=== PATIENT | female | born 1970 | race Caucasian/White ===

== ENCOUNTER 2019-10-18 07:50 | Outpatient (REF) | payer OTHER, SELFPAY ==
[2019-10-18 08:36] LABS: Basophils # 0.1 10^3/uL (0.0-0.1); Basophils % 1.1 %; Eosinophils # 0.2 10^3/uL (0.0-0.8); Eosinophils % 1.9 %; Hematocrit 42.4 % (37.0-47.0); Hemoglobin 13.7 g/dL (11.5-15.3); Lymphocytes # 2.4 10^3/uL (0.8-4.8); Lymphocytes % 24.8 %; Mean Corpuscular HGB Conc 32.3 g/dL (30.0-36.0); Mean Corpuscular Hemoglobin 28.5 pg (28.0-34.0); Mean Corpuscular Volume 88.1 fL (81-99); Mean Platelet Volume 10.2 fL (7.4-10.4); Monocytes # 0.7 10^3/uL (0.2-0.9); Neutrophils # 6.4 10^3/uL (1.8-7.7); Neutrophils % 64.9 %; Nucleated Red Blood Cells % 0 %; Platelet Count 357 10^3/cmm (130-400); Red Blood Count 4.81 10^6/uL (4.1-5.3); Red Cell Distribution Width 12.4 % (12.1-15.1); White Blood Count 9.9 10^3/uL (4.0-10.0)
[2019-10-18 13:37] LABS: Alanine Aminotransferase 65 U/L (0-33); Alkaline Phosphatase 69 IU/L (35-105); Anion Gap 19.5 (5-19); Aspartate Amino Transferase 31 U/L (0-32); Blood Urea Nitrogen 14 mg/dL (6-20); Calcium 9.6 mg/dL (8.5-10.5); Carbon Dioxide 23 mmol/L (22-29); Chloride 99 mmol/L (98-107); Chol HDL Ratio 2.82 mg/dL (0.0-4.40); Cholesterol 223 mg/dL (0-200); Globulin 3.3 g/dL (1.3-4.6); Glomerular Filtration Rate 67.1 mL/min (90-130); Glucose 75 mg/dL (65-115); HDL Cholesterol 79 mg/dL (60-100); LDL Cholesterol Calculated 116 mg/dL (50-129); LDL HDL Ratio 1.47 RATIO (0.00-3.22); Potassium 3.5 mmol/L (3.5-5.1); Sodium 138 mmol/L (136-145); Thyroid Stimulating Hormone 3.92 uIU/mL (0.27-4.20); Total Bilirubin 0.2 mg/dL (0.15-1.2); Total Protein 7.3 g/dL (6.6-8.7); Triglycerides 139 mg/dL (0-150)
[2019-10-18 23:23] LABS: 25 Hydroxy Vitamin D 22 ng/mL (30-100)
[2019-10-19 02:40] LABS: Estmated Average Glucose 123; Hemoglobin A1C 5.9 % (4.0-6.0)
== END 2019-10-18 07:51 | disposition home or self-care (01) ==
LOC: LAB 07:50
PROVIDERS: Family Provider Family Medicine; PCP Family Medicine; Visit Provider Dermatology
DX: Z01.89 Encounter for other specified special examinations (principal)
CPT/HCPCS: 80053; 80061; 82306; 83036; 84443; 85025

== ENCOUNTER 2020-12-08 08:03 | Outpatient (CLI) | payer OTHER, SELFPAY ==
--- NOTE | 2020-12-08 08:29 | MM_ITS ---
WS: [id number] BILATERAL DIGITAL SCREENING MAMMOGRAPHY WITH CAD CLINICAL INFORMATION: SCREENING HISTORY: Screening mammogram. No current complaints. COMPARISON: TECHNIQUE: Bilateral CC and MLO views. FINDINGS: Bilateral breast implants appear intact. Scattered fibroglandular densities bilaterally. No suspicious focal mass, asymmetry, calcifications, or architectural distortion. No evidence of malignancy. MM/[place] [id number] IMPRESSION: BI-RADS: 2-Benign FOLLOW UP: 1 Year Follow-up Recommend return to annual screening mammography.
== END 2020-12-08 08:04 | disposition home or self-care (01) ==
LOC: RADSHAW 08:08
PROVIDERS: PCP Family Medicine; Visit Provider Family Medicine
DX: Z12.31 Encounter for screening mammogram for malignant neoplasm of breast (principal)
CPT/HCPCS: 77067

== ENCOUNTER → 2022-03-07 09:00 | Outpatient (BNVA) | payer OTHER, SELFPAY | PROVIDERS: PCP Family Medicine; Visit Provider Clinical Nurse Specialist Adult Health | DX: J06.9 Acute upper respiratory infection, unspecified (principal) | CPT/HCPCS: 87635; 87801; 87880 ==

== ENCOUNTER 2024-11-03 10:59 | Emergency (ER) | payer OTHER, SELFPAY ==
[2024-11-03] VITALS (14 sets, daily range): BP systolic 129–150; BP diastolic 80–111; PULSE 64–86; RESP 13–21; TEMP 36.9; O2SAT 94–100
--- NOTE | 2024-11-03 11:07 | ECG_ITS ---
[employer] Test Date: 2024-11-03 Pat Name: Alejandrina Harrison Department: Room: Gender: Female Assessor: : 1970 Requested By: Abby Bledsoe Order Number: [id number] Tatiana MD: PATRICK BOURGEOIS Measurements Intervals [place] Rate: 84 P: 12 IN: 162 QRS: -16 QRSD: 102 T: 28 QT: 410 QTc: 487 Interpretive Statements SINUS RHYTHM MINIMAL VOLTAGE CRITERIA FOR LVH, CONSIDER NORMAL VARIANT [MEETS CRITERIA IN ONE OF: R(aVL), S(V1), R(V5), R(V5/V6)+S(V1)] POSSIBLE ANTERIOR MYOCARDIAL INFARCTION , OF INDETERMINATE AGE [30 ms Q WAVE IN V3/V4, OR R < 0.2 mV IN V4] INTERPRETATION BASED ON A DEFAULT AGE OF 40 YEARS Compared to ECG 03/18/2015 19:22:45 Myocardial infarct finding now present Electronically Signed On 11-05-2024 23:38:27 CUSTOMER EXPERIENCE INTERN by PATRICK BOURGEOIS [id number]
--- NOTE | 2024-11-03 11:18 | XRR_ITS ---
PROCEDURE INFORMATION: Exam: XR Chest Exam date and time: 11/03/2024 11:54 AM Age: 54 years old Clinical indication: Chest pressure; Prior surgery; Surgery date: 6+ months; Surgery type: Breast augmentation; Epigastric/chest pain TECHNIQUE: Imaging protocol: Radiologic exam of the chest. Views: 1 view. COMPARISON: CT angio chest w abd pel w con 11/03/2024 11:39 AM FINDINGS: Lungs: Unremarkable. No consolidation. Pleural spaces: Unremarkable. No pleural effusion. No pneumothorax. Heart/Mediastinum: Unremarkable. No cardiomegaly. Bones/joints: Unremarkable. Soft tissues: Left axillary clips. XR/XR chest 1V portable [id number] IMPRESSION: No acute cardiopulmonary disease.
--- NOTE | 2024-11-03 11:18 | CTR_ITS ---
PROCEDURE INFORMATION: Exam: CTA Chest With Contrast Exam date and time: 11/03/2024 11:39 AM Age: 54 years old Clinical indication: Abdominal pain; Epigastric; Chest pressure; Iv came apart so had to start over; Additional info: Epigastric pain TECHNIQUE: Imaging protocol: Computed tomographic angiography of the chest with contrast. Exam focused on the arteries. 3D rendering (Not supervised by radiologist): MIP and/or 3D reconstructed images were created by the technologist. Radiation optimization: All CT scans at this facility use at least one of these dose optimization techniques: automated exposure control; mA and/or kV adjustment per patient size (includes targeted exams where dose is matched to clinical indication); or iterative reconstruction. Contrast material: OMNI 350; Contrast volume: 100 ml; Contrast route: INTRAVENOUS (IV); COMPARISON: CR XR chest 2V* [id number] 07/08/2019 11:38 AM RADIATION DOSE METRICS: Total DLP (mGy-cm): 1435.84 FINDINGS: Pulmonary arteries: No acute central or lobar pulmonary embolism. The main pulmonary artery is normal in caliber. Aorta: The ascending thoracic aorta is normal in caliber. Thyroid: The thyroid is unremarkable. Lungs: No focal consolidation. Mild dependent atelectasis bilaterally. Pleural spaces: Unremarkable. No pneumothorax. No pleural effusion. Heart: Unremarkable. No cardiomegaly. No pericardial effusion. Lymph nodes: Unremarkable. No enlarged lymph nodes. Bones/joints: Unremarkable. No acute fracture. Soft tissues: Bilateral breast implants are visualized. PROCEDURE INFORMATION: Exam: CT Abdomen And Pelvis With Contrast Exam date and time: 11/03/2024 11:39 AM Age: 54 years old Clinical indication: Abdominal pain; Epigastric; Chest pressure; Iv came apart so had to start over; Additional info: Epigastric pain TECHNIQUE: Imaging protocol: Computed tomography of the abdomen and pelvis with contrast. Radiation optimization: All CT scans at this facility use at least one of these dose optimization techniques: automated exposure control; mA and/or kV adjustment per patient size (includes targeted exams where dose is matched to clinical indication); or iterative reconstruction. Contrast material: OMNI 350; Contrast volume: 100 ml; Contrast route: INTRAVENOUS (IV); COMPARISON: CR XR chest 2V* [id number] 07/08/2019 11:38 AM RADIATION DOSE METRICS: Total DLP (mGy-cm): 1435.84 FINDINGS: Liver: Multiple scattered hypodensities in the liver likely representing small simple hepatic cysts. The liver is normal in size. Mild intrahepatic biliary ductal prominence. Gallbladder and biliary ducts: Status post cholecystectomy with normal post cholecystectomy prominence of the common bile duct as well as prominence of the intrahepatic biliary ducts. Pancreas: Normal. No ductal dilation. Spleen: Multiple scattered hypodensities in the spleen too small to further characterize likely representing small cysts or hemangiomas. Adrenal glands: Normal. No mass. Kidneys and ureters: Normal. No hydronephrosis. Stomach and bowel: Increased colonic stool burden suggesting constipation. Mild gastric wall thickening accentuated by underdistention. Scattered fluid-filled non pathologically dilated loops of small bowel. Appendix: No evidence of acute appendicitis. Intraperitoneal space: No intraperitoneal free air or fluid. Vasculature: Mild narrowing at the origin of the celiac artery with poststenotic dilatation (28/30) and (20/481). The superior mesenteric artery is widely patent. The inferior mesenteric artery is widely patent. No aneurysmal dilatation of the abdominal aorta. The iliac arteries are normal in caliber. The bilateral renal arteries are widely patent. Lymph nodes: Unremarkable. No enlarged lymph nodes. Urinary bladder: Unremarkable as visualized. Reproductive: Unremarkable as visualized. Bones/joints: Mild multilevel degenerative disease of the thoracolumbar spine. Endplate sclerosis, degenerative disc disease and associated vacuum phenomenon at L5-S1. No acute fracture. Soft tissues: Tiny fat containing umbilical hernia. CT/CT angio chest w abd pel w con IMPRESSION: No acute pathology in the chest. No acute aortic dissection. No central pulmonary embolism. IMPRESSION: 1. Mild wall thickening of the stomach with scattered fluid-filled loops of small bowel throughout the abdomen and pelvis likely accentuated by underdistention however may represent mild gastroenteritis. Otherwise no acute pathology in the abdomen and pelvis. 2. No evidence of acute aortic dissection. 3. Stable findings status post cholecystectomy with mild intra and extrahepatic biliary prominence likely normal postsurgical appearance. 4. There is minimal narrowing at the proximal celiac artery with mild poststenotic dilatation which may be secondary to median arcuate ligament compression. Recommend clinical correlation for median arcuate ligament syndrome.
[2024-11-03 11:25] LABS: Basophils # 0.1 10^3/uL (0.0-0.1); Eosinophils # 0.2 10^3/uL (0.0-0.8); Eosinophils % 2.3 %; Hematocrit 38.4 % (36-47); Lymphocytes # 3.4 10^3/uL (0.8-4.8); Lymphocytes % 31.7 %; Mean Corpuscular HGB Conc 34.4 g/dL (30-55); Mean Corpuscular Hemoglobin 28.8 pg (27-33); Mean Corpuscular Volume 83.8 fl (85-98); Mean Platelet Volume 9.6 fL (7.4-10.4); Monocytes # 0.6 10^3/uL (0.2-0.9); Monocytes % 5.6 %; Neutrophils # 6.28 10^3/uL (1.8-7.7); Neutrophils % 59.2 %; Nucleated Red Blood Cells % 0 %; Platelet Count 344 10^3/cmm (157-399); Red Blood Count 4.58 10^6/uL (3.85-5.65); Red Cell Distribution Width 12.4 % (12.1-15.1); White Blood Count 10.62 10^3/uL (3.29-11.43)
[2024-11-03] MEDS: morphine 4 mg/mL SDV 1 mL IVP ×2 (11:33→14:38)
[2024-11-03] MEDS: ondansetron 2 mg/ML SDV 2 mL 4 MG IVP (11:33)
[2024-11-03] MEDS: famotidine 20 mg/2 mL INJ 40 MG IVP (11:33)
[2024-11-03 11:41] LABS: Troponin(5th) Baseline < 6 ng/L (0-10)
[2024-11-03 11:44] LABS: Alanine Aminotransferase 12 U/L (0-33); Albumin Level 3.9 g/dL (3.5-5.2); Alkaline Phosphatase 59 U/L (35-105); Anion Gap 16.2 (5-19); Aspartate Amino Transferase 13 U/L (0-32); Blood Urea Nitrogen 12 mg/dL (6-20); Calcium 9.1 mg/dL (8.5-10.5); Carbon Dioxide 21 mmol/L (22-29); Chloride 102 mmol/L (98-107); Globulin 2.7 g/dL (1.3-4.6); Glomerular Filtration Rate 65.8 mL/min (90-130); Glucose 123 mg/dL (65-115); Lipase 40 U/L (13-60); Osmolality Calculated 283 mOsm/kg (285-295); Potassium 3.2 mmol/L (3.5-5.1); Sodium 136 mmol/L (136-145); Total Bilirubin 0.4 mg/dL (0.15-1.2); Total Protein 6.6 g/dL (6.6-8.7)
[2024-11-03] MEDS: iohexol 350 mg/mL 500 mL Btl (per mL) IV (11:45)
--- NOTE | 2024-11-03 11:55 | ED_ITS ---
HPI - Abdominal Pain 2 General: Chief Complaint: Abdominal Pain Stated Complaint: severe abd pain Time Seen by Provider: 11/03/24 11:09 History of Present Illness: This patient is a 54 year old presenting with epigastric pain that radiates up into her chest and into her back between her shoulder blades. She says that it started this morning while she was still in bed - around 6 or 6:30. It has continually gotten worse as the day progressed. She has had nausea, shortness of breath, and feels like she might feel like she could pass out. She denies history of cardiac disease. She has had her gallbladder out in the past. She has had a stress test but it was many years ago. She has not had recent illness. Her daughter notes that her diastolic blood pressure has been running high for a few weeks. The patient denies being on the norgestrimate-estradiol that is on her medication list. She reports methylphenidate, metoprolol, fluoxetine only. Upon further questioning - the patient is using semaglutide for weight loss and has lost about 40 pounds over the past few months. She also has a history of malignant melanoma on her left shoulder. She had surgery to remove it and did not require chemotherapy or radiation. She follows up with oncology annually has had not had any problems. Related Data Home Medications ?Medication ?Instructions ?Recorded ?Confirmed fluoxetine 20 mg tablet 20 mg PO DAILY 11/03/2410/13 semaglutide (weight loss) 1 mg/0.5 1 mg SUBCUT Q7D 11/03/24 mL subcutaneous pen injector Previous Rx's ?Medication ?Instructions ?Recorded metoprolol tartrate 25 mg tablet 25 mg PO BID #180 tab s 06/20/24 norgestimate-ethinyl estradiol 1 tab PO DAILY #84 tabs 07/29/24 0.18 mg/0.215mg/0.25mg-35 mcg(28)tablet (Tri-Linyah) methylphenidate HCl 20 mg 20 mg PO DAILY 30 days #30 t abs 11/11/24 tablet,extended release Allergies Allergy/AdvReac Type Severity Reaction Status Date / Time buspirone (From BuSpar) Allergy Unknown Unknown Verified 11/03/24 11:18 penicillin V Allergy Unknown Unknown Verified 11/03/24 11:18 Sulfa (Sulfonamide Allergy Unknown Unknown Verified 11/03/24 11:18 Antibiotics) PFSH ED 2 PFSH: Medical History (Updated 11/11/24 @ 00:00 by SHOAIB Weller) History of alcohol abuse Depression Vitamin D deficiency Generalized anxiety disorder Seasonal allergies Essential hypertension ADD (attention deficit disorder) has been taking methylphenidate since 2016 Malignant melanoma EILEEN (obstructive sleep apnea) Surgical History (Updated 04/19/24 @ 09:42 by Néstor Coleman NP) Hx of wisdom tooth extraction Hx of abdominal surgery tummy tuck Hx of breast augmentation Hx of cholecystectomy Physical Exam 2 Const: COMMON NORMALS: patient oriented x3 and alert GENERAL APPEARANCE: c ooperative and in distress HENMT: HEAD & SCALP: normal to inspection FACE & SINUS: normal facial exam Eye: GENERAL EYE: appearance normal, both eyes and all related structures Neck/C-Spine: COMMON NORMALS: supple, no meningeal signs and no JVD Chest: COMMONS NORMALS: normal inspection of the chest Resp: COMMON NORMALS: normal respiratory effort, No use of accessory muscles and clear to auscultation bilaterally AUSCULTATION: clear to auscultation bilaterally Cardio: COMMON NORMALS: no JVD, regular rate, regular rhythm and No murmurs present (Cardio) RATE: regular rate RHYTHM: regular rhythm GI: COMMON NORMALS: Normal to inspection, nondistended, normoactive bowel sounds present and Soft to palpation INSPECTION: Yes normal to inspection AUSCULTATION: Yes normoactive bowel sounds PALPATION: Yes Soft to palpation and Yes Tenderness to palpation present (GI) (mild) Details: LUQ and RUQ Back/Pelvis: COMMON NORMALS: thoracic and lumbar spine normal to inspection Extremity: COMMON NORMALS: normal to inspection Neuro: COMMON NORMALS: patient oriented x3, moves all extremities, no focal motor deficits and no sensory deficits noted SENSORIUM/ORIENTATION: Yes alert MENINGEAL SIGNS: Yes no meningeal signs Psych: COMMON NORMALS: mental status grossly normal, cooperative and normal affect Skin: COMMON NORMALS: no rashes or lesions noted and turgor normal GENERAL SKIN EXAM: no rashes or lesions noted and turgor normal Course 2 Vital Signs: Vital signs: Vital Signs Temperature 98.5 F 11/03/24 11:18 Pulse Rate 64 11/03/24 16:17 Respiratory Rate 21 H 11/03/24 16:00 Blood Pressure 144/84 11/03/24 16:17 Pulse Oximetry 97 11/03/24 16:17 Oxygen Delivery Me thod Room Air 11/03/24 11:15 MDM - Abdominal Pain Medical Decision Making Patient with significant pain on my evaluation - vomiting post abdominal exam. Her abdominal tenderness was less than anticipated based on her apparent degree of discomfort. Her symptoms are concerning for biliary colic - but she has no gallbladder. She did not have a Hill sign on exam although she was tender in the right upper quadrant. Her LFTs were normal. Her white count was normal. She was noted to have some mild intra and extrahepatic biliary dilatation on her CT scan which was felt to be within normal limits for postcholecystectomy. She had some scattered hypoattenuating lesions in the liver and spleen which were felt to be cysts. There was mention of some thickening of the gastric wall which could have been due to underdistention or a gastroenteritis. There is also some mention of a mild stenosis at the proximal celiac artery consistent with potential for median arcuate ligament syndrome. I added a lactic acid to her labs to see if there was any evidence of ischemia. Clinically am not sure this fits the symptoms. She has had some weight loss recently but is not overly thin. She did have improvement with morphine and Zofran. I also gave her Pepcid. Her pain started to return and she got a second dose of morphine. Her troponin came back normal both at 0 and 2 hours. Lipase was normal. She denies history of ulcers. Cause of her symptoms is unclear at this point. Options for admission vs outpatient follow up were discussed and she prefers to go home at this time. Lab Data 11/03/24 11:18 11/03/24 11:18 Labs/Radiology: Radiology Impressions Chest X-Ray 11/03/24 11:18 IMPRESSION: No acute cardiopulmonary disease. Chest/Abdomen/Pelvis CT 11/03/24 11:18 IMPRESSION: No acute pathology in the chest. No acute aortic dissection. No central pulmonary embolism. IMPRESSION: 1. Mild wall thickening of the stomach with scattered fluid-filled loops of small bowel throughout the abdomen and pelvis likely accentuated by underdistention however may represent mild gastroenteritis. Otherwise no acute pathology in the abdomen and pelvis. 2. No evidence of acute aortic dissection. 3. Stable findings status post cholecystectomy with mild intra and extrahepatic biliary prominence likely normal postsurgical appearance. 4. There is minimal narrowing at the proximal celiac artery with mild poststenotic dilatation which may be secondary to median arcuate ligament compression. Recommend clinical correlation for median arcuate ligament syndrome. Laboratory Results WBC 10.62 10^3/uL (3.29-11.43) 11/03/24 11:18 RBC 4.58 10^6/uL (3.85-5.65) 11/03/24 11:18 Hgb 13.20 g/dL (11.27-16.99) 11/03/24 11:18 Hct 38.4 % (36-47) 11/03/24 11:18 MCV 83.8 fl (85-98) L 11/03/24 11:18 MCH 28.8 pg (27-33) 11/03/24 11:18 MCHC 34.4 g/dL (30-55) 11/03/24 11:18 RDW 12.4 % (12.1-15.1) 11/03/24 11:18 Plt Count 344 10^3/cmm (157-399) 11/03/24 11:18 MPV 9.6 fL (7.4-10.4) 11/03/24 11:18 Neut % (Auto) 59.2 % 11/03/24 11:18 Lymph % (Auto) 31.7 % 11/03/24 11:18 [place] % (Auto) 5.6 % 11/03/24 11:18 Eos % (Auto) 2.3 % 11/03/24 11:18 Baso % (Auto) 1.0 % 11/03/24 11:18 Neut # (Auto) 6.28 10^3/uL (1.8-7.7) 11/03/24 11:18 Lymph # (Auto) 3.4 10^3/uL (0.8-4.8) 11/03/24 11:18 [place] # (Auto) 0.6 10^3/uL (0.2-0.9) 11/03/24 11:18 Eos # (Auto) 0.2 10^3/uL (0.0-0.8) 11/03/24 11:18 Baso # (Auto) 0.1 10^3/uL (0.0-0.1) 11/03/24 11:18 Nucleated RBC % (auto) 0 % 11/03/24 11:18 Nucleated RBCs # 0.0 /100WBC 11/03/24 11:18 Sodium 136 mmol/L (136-145) 11/03/24 11:18 Potassium 3.2 mmol/L (3.5-5.1) L 11/03/24 11:18 Chloride 102 mmol/L (98-107) 11/03/24 11:18 Carbon Dioxide 21 mmol/L (22-29) L 11/03/24 11:18 Anion Gap 16.2 (5-19) 11/03/24 11:18 BUN 12 mg/dL (6-20) 11/03/24 11:18 Creatinine 0.9 mg/dL (0.5-0.9) 11/03/24 11:18 GFR Calculation 65.8 mL/min (90-130) L 11/03/24 11:18 Glucose 123 mg/dL (65-115) H 11/03/24 11:18 Calculated Osmolality 283 mOsm/kg (285-295) L 11/03/24 11:18 Lactic Acid 0.8 mmol/L (0.5-2.2) 11/03/24 13:35 Calcium 9.1 mg/dL (8.5-10.5) 11/03/24 11:18 Total Bilirubin 0.4 mg/dL (0.15-1.2) 11/03/24 11:18 AST 13 U/L (0-32) 11/03/24 11:18 ALT 12 U/L (0-33) 11/03/24 11:18 Alkaline Phosphatase 59 U/L (35-105) 11/03/24 11:18 Troponin T Baseline < 6 ng/L (0-10) 11/03/24 11:18 Troponin T 120 Minute 6.00 ng/L (0-10) 11/03/24 13:35 Delta Troponin T 0.37100 ABS# (0-10) 11/03/24 13:35 Total Protein 6.6 g/dL (6.6-8.7) 11/03/24 11:18 Albumin 3.9 g/dL (3.5-5.2) 11/03/24 11:18 Globulin 2.7 g/dL (1.3-4.6) 11/03/24 11:18 Lipase 40 U/L (13-60) 11/03/24 11:18 All radiology interpretation(s) finalized by discharge Discharge Plan Discharge Patient Disposition: Home Clinical Impression: Abdominal pain, Chest pain, Vomiting Condition: Stable Prescriptions: No Action metoprolol tartrate 25 mg tablet 25 mg PO BID Qty: 180 3RF norgestimate-ethinyl estradiol [Tri-Linyah] 0.18/0.215/0.25 mg-35 mcg (28) tablet 1 tab PO DAILY Qty: 84 3RF methylphenidate HCl 20 mg tablet extended release 20 mg PO DAILY 30 Days Qty: 30 0RF semaglutide (weight loss) 1 mg/0.5 mL Pen Injector 1 mg SUBCUT Q7D fluoxetine 20 mg tablet 20 mg PO DAILY Rx Instructions: TAKE ONE TABLET BY MOUTH DAILY Discharge Orders: Discharge ED (Routine); Ordered 11/03/24 Ordered By: Abby Bledsoe Referrals: Robert Reno DO [Primary Care Provider] - Discharge Diet: Advance as tolerated Discharge Activity: Resume usual activity Patient Instructions: Abdominal Pain (ED), Opioid Safety, Pain Management Activity Restrictions/Additional Instructions: Take an [id number] medicine for heartburn such as Prevacid or Prilosec for the next few weeks. Return to the ER if worsening pain or fever. Follow-up with your primary care doctor if not improving. Print Language: Welsh Coding Level of Care Code ED Grain Thresher for Kristina Machado
[2024-11-03] MEDS: aspirin 325 mg Tablet PO (12:12)
--- NOTE | 2024-11-03 13:35 | ECG_ITS ---
[facility] Test Date: 2024-11-03 Pat Name: Alejandrina Harrison Department: Room: Gender: Female Registered Nurse Teacher: : 1970 Requested By: Abby Bledsoe Order Number: [id number] Tatiana MD: PATRICK BOURGEOIS Measurements Intervals [place] Rate: 68 P: 10 [place]: 171 QRS: -8 QRSD: 95 T: 4 QT: 422 QTc: 452 Interpretive Statements SINUS RHYTHM Compared to ECG 11/03/2024 11:07:42 Myocardial infarct finding no longer present Electronically Signed On 11-05-2024 23:50:55 CROZE CUTTER by PATRICK BOURGEOIS [id number]
[2024-11-03 14:14] LABS: Troponin 5 2HR Delta 0.00001 ABS# (0-10)
[2024-11-03 14:46] LABS: Lactic Sepsis W/Reflex 0.8 mmol/L (0.5-2.2)
== END 2024-11-03 16:19 | disposition home or self-care (01) ==
PROVIDERS: Emergency Provider Emergency Medicine; PCP Family Medicine
DX: R10.9 Unspecified abdominal pain (principal); R07.9 Chest pain, unspecified; R11.10 Vomiting, unspecified; I10 Essential (primary) hypertension; Z85.820 Personal history of malignant melanoma of skin
CPT/HCPCS: 36415; 71045; 71275; 74177; 80053; 83605; 83690; 84484; 85025; 93005; 96374; 96375; 96376; 99285; J2270; J2405; J3490

== ENCOUNTER 2024-11-28 16:11 | Inpatient (IN) | payer OTHER, SELFPAY ==
[2024-11-28] VITALS (12 sets, daily range): BP systolic 94–126; BP diastolic 63–83; PULSE 73–125; RESP 16–18; TEMP 36.6–36.9; O2SAT 95–99; BMI 27.9
[2024-11-28 16:47] LABS: Basophils # 0.1 10^3/uL (0.0-0.1); Basophils % 0.7 %; Eosinophils # 0.1 10^3/uL (0.0-0.8); Eosinophils % 0.6 %; Hematocrit 45.4 % (36-47); Lymphocytes # 3.2 10^3/uL (0.8-4.8); Lymphocytes % 18.9 %; Mean Corpuscular HGB Conc 33.5 g/dL (30-55); Mean Corpuscular Hemoglobin 28.9 pg (27-33); Mean Corpuscular Volume 86.3 fl (85-98); Mean Platelet Volume 9.8 fL (7.4-10.4); Monocytes # 1.1 10^3/uL (0.2-0.9); Monocytes % 6.3 %; Neutrophils # 12.35 10^3/uL (1.8-7.7); Neutrophils % 73.2 %; Nucleated Red Blood Cells % 0 %; Platelet Count 374 10^3/cmm (157-399); Red Blood Count 5.26 10^6/uL (3.85-5.65); Red Cell Distribution Width 12.5 % (12.1-15.1); White Blood Count 16.86 10^3/uL (3.29-11.43)
--- NOTE | 2024-11-28 16:57 | XRR_ITS ---
PROCEDURE INFORMATION: Exam: XR Abdomen Exam date and time: 11/28/2024 5:10 PM Age: 54 years old Clinical indication: Abdominal pain; Periumbilical; Additional info: Abdominal pain, nausea vomiting TECHNIQUE: Imaging protocol: Radiologic exam of the abdomen. Views: Frontal supine view of the abdomen. 1 View. COMPARISON: CT angio chest w abd pel w con 11/03/2024 11:39 AM FINDINGS: Tubes, catheters and devices: Surgical clips project over right upper quadrant. Gastrointestinal tract: Nonobstructive bowel gas pattern. Intraperitoneal space: No pneumoperitoneum. Bones/joints: No acute osseous abnormality. XR/XR KUB portable [id number] IMPRESSION: Nonobstructive bowel gas pattern.
--- NOTE | 2024-11-28 17:04 | W.ED.ABDPA2 ---
HPI - Abdominal Pain General: Chief Complaint: Abdominal Pain Stated Complaint: Abd pain Time Seen by Provider: 11/28/24 16:38 History of Present Illness: 54-year-old female presents with some epigastric pain that is now more diffuse abdominal pain. Patient was seen here about a week ago with negative CT and labs that showed anything significant. They thought that maybe she had a ulcer or gastritis. That she got temporary little better but then about 3 days ago she started vomiting and now has some diffuse abdominal discomfort. Patient was recently switched from omeprazole to Protonix. Associated Symptoms: Reports nausea and vomiting; Denies chills and fever(s) Related Data Home Medications ?Medication ?Instructions ?Recorded ?Confirmed fluoxetine 20 mg tablet 20 mg PO DAILY 11/03/24 11/03/24 semaglutide (weight loss) 1 mg/0.5 1 mg SUBCUT Q7D 11/03/24 11/03/24 mL subcutaneous pen injector Previous Rx's ?Medication ?Instructions ?Recorded metoprolol tartrate 25 mg tablet 25 mg PO BID #180 tabs 06/20/24 norgestimate-ethinyl estradiol 1 tab PO DAILY #84 tabs 07/29/24 0.18 mg/0.215mg/0.25mg-35 mcg(28)tablet (Tri-Linyah) methylphenidate HCl 20 mg 20 mg PO DAILY 30 days #30 tabs 11/11/24 tablet,extended release Allergies Allergy/AdvReac Type Severity Reaction Status Date / Time buspirone (From BuSpar) Allergy Unknown Unknown Verified 11/28/24 16:21 penicillin V Allergy Unknown Unknown Verified 11/28/24 16:21 Sulfa (Sulfonamide Allergy Unknown Unknown Verified 11/28/24 16:21 Antibiotics) Review of Systems Const: Denies: fever(s) or chills Card: Denies: chest pain or palpitations Resp: Denies: dyspnea, productive cough or non-productive cough GI: Reports: abdominal pain, nausea and vomiting : Denies: flank pain or difficulty voiding Musc: Denies: neck pain or back pain PFSH ED PFSH: Medical History History of alcohol abuse Depression Vitamin D deficiency Generalized anxiety disorder Seasonal allergies Essential hypertension ADD (attention deficit disorder) has been taking methylphenidate since 2016 Malignant melanoma EILEEN (obstructive sleep apnea) Surgical History Hx of wisdom tooth extraction Hx of abdominal surgery tummy tuck Hx of breast augmentation Hx of cholecystectomy Physical Exam Const: COMMON NORMALS: patient oriented x3 and alert GENERAL APPEARANCE: not comfortable Resp: COMMON NORMALS: normal respiratory effort, No use of accessory muscles and clear to auscultation bilaterally AUSCULTATION: clear to auscultation bilaterally Cardio: COMMON NORMALS: regular rhythm RATE: tachycardic RHYTHM: regular rhythm GI: PALPATION: Yes Tenderness to palpation present (GI) Extremity: COMMON NORMALS: normal to inspection and full ROM Neuro: COMMON NORMALS: patient oriented x3, moves all extremities, no focal motor deficits and no sensory deficits noted SENSORIUM/ORIENTATION: Yes alert Course Vital Signs: Vital signs: Vital Signs Temperature 97.9 F 11/28/24 16:14 Pulse Rate 125 H 11/28/24 16:14 Respiratory Rate 16 11/28/24 17:36 Blood Pressure 124/83 11/28/24 18:01 Pulse Oximetry 96 11/28/24 18:01 Oxygen Delivery Me thod Room Air 11/28/24 16:14 MDM - Abdominal Pain Medical Decision Making Patient's labs were ordered reviewed and shows elevated white count that is new from her visit recently. Patient continue to have significant mount of pain diffusely over abdomen so I did obtain a CT abdomen pelvis. CT abdomen pelvis shows diffuse ileus/enteritis with some free fluid. Patient is feeling better with her nausea following treatment but still having some pain so I will start her on morphine. Following CT results I discussed case with both Dr. Bragg general surgery and Dr. Laird hospitalist. Patient will be admitted for observation, IV fluid, pain control and nausea control for further evaluation as indicated. She was stable upon transfer to the floor. Lab Data 11/28/24 16:41 11/28/24 16:41 Labs/Radiology: Radiology Impressions KUB X-Ray 11/28/24 16:57 IMPRESSION: Nonobstructive bowel gas pattern. Abdomen/Pelvis CT 11/28/24 18:07 IMPRESSION: 1. Multiple mildly dilated and significantly thickened fluid-filled loops of small bowel with severe mesenteric inflammatory changes including extensive fat stranding and moderate amount of abdominopelvic free fluid. Constellation of findings concerning for severe ileus versus developing obstruction with underlying infectious/inflammatory process. 2. Numerous punctate calcifications within lower uterine segment, not fully characterized. Nonspecific findings but may represent underlying fibroids. Further evaluation with ultrasound on nonemergent basis may be performed. Laboratory Results WBC 16.86 10^3/uL (3.29-11.43) H 11/28/24 16:41 RBC 5.26 10^6/uL (3.85-5.65) 11/28/24 16:41 Hgb 15.20 g/dL (11.27-16.99) 11/28/24 16:41 Hct 45.4 % (36-47) 11/28/24 16:41 MCV 86.3 fl (85-98) 11/28/24 16:41 MCH 28.9 pg (27-33) 11/28/24 16:41 MCHC 33.5 g/dL (30-55) 11/28/24 16:41 RDW 12.5 % (12.1-15.1) 11/28/24 16:41 Plt Count 374 10^3/cmm (157-399) 11/28/24 16:41 MPV 9.8 fL (7.4-10.4) 11/28/24 16:41 Neut % (Auto) 73.2 % 11/28/24 16:41 Lymph % (Auto) 18.9 % 11/28/24 16:41 [place] % (Auto) 6.3 % 11/28/24 16:41 Eos % (Auto) 0.6 % 11/28/24 16:41 Baso % (Auto) 0.7 % 11/28/24 16:41 Neut # (Auto) 12.35 10^3/uL (1.8-7.7) H 11/28/24 16:41 Lymph # (Auto) 3.2 10^3/uL (0.8-4.8) 11/28/24 16:41 [place] # (Auto) 1.1 10^3/uL (0.2-0.9) H 11/28/24 16:41 Eos # (Auto) 0.1 10^3/uL (0.0-0.8) 11/28/24 16:41 Baso # (Auto) 0.1 10^3/uL (0.0-0.1) 11/28/24 16:41 Nucleated RBC % (auto) 0 % 11/28/24 16:41 Nucleated RBCs # 0.0 /100WBC 11/28/24 16:41 Sodium 140 mmol/L (136-145) 11/28/24 16:41 Potassium 3.4 mmol/L (3.5-5.1) L 11/28/24 16:41 Chloride 103 mmol/L (98-107) 11/28/24 16:41 Carbon Dioxide 24 mmol/L (22-29) 11/28/24 16:41 Anion Gap 16.4 (5-19) 11/28/24 16:41 BUN 15 mg/dL (6-20) 11/28/24 16:41 Creatinine 1.2 mg/dL (0.5-0.9) H 11/28/24 16:41 GFR Calculation 47.2 mL/min (90-130) L 11/28/24 16:41 Glucose 95 mg/dL (65-115) 11/28/24 16:41 Calculated Osmolality 291 mOsm/kg (285-295) 11/28/24 16:41 Calcium 8.7 mg/dL (8.5-10.5) 11/28/24 16:41 Total Bilirubin 0.5 mg/dL (0.15-1.2) 11/28/24 16:41 AST 41 U/L (0-32) H 11/28/24 16:41 ALT 65 U/L (0-33) H 11/28/24 16:41 Alkaline Phosphatase 59 U/L (35-105) 11/28/24 16:41 Total Protein 6.8 g/dL (6.6-8.7) 11/28/24 16:41 Albumin 3.9 g/dL (3.5-5.2) 11/28/24 16:41 Globulin 2.9 g/dL (1.3-4.6) 11/28/24 16:41 Lipase 45 U/L (13-60) 11/28/24 16:41 All radiology interpretation(s) finalized by discharge Discharge Plan Discharge Patient Disposition: Placed in Observation Clinical Impression: Gastroenteritis, Ileus due to infection Coding Level of Care Code ED Airworthiness Inspector for Kristina Machado
[2024-11-28 17:08] LABS: Alanine Aminotransferase 65 U/L (0-33); Albumin Level 3.9 g/dL (3.5-5.2); Alkaline Phosphatase 59 U/L (35-105); Anion Gap 16.4 (5-19); Aspartate Amino Transferase 41 U/L (0-32); Blood Urea Nitrogen 15 mg/dL (6-20); Calcium 8.7 mg/dL (8.5-10.5); Carbon Dioxide 24 mmol/L (22-29); Chloride 103 mmol/L (98-107); Globulin 2.9 g/dL (1.3-4.6); Glomerular Filtration Rate 47.2 mL/min (90-130); Glucose 95 mg/dL (65-115); Lipase 45 U/L (13-60); Osmolality Calculated 291 mOsm/kg (285-295); Potassium 3.4 mmol/L (3.5-5.1); Sodium 140 mmol/L (136-145); Total Bilirubin 0.5 mg/dL (0.15-1.2); Total Protein 6.8 g/dL (6.6-8.7)
[2024-11-28] MEDS: famotidine 20 mg/2 mL INJ 40 MG IVP (17:19)
[2024-11-28] MEDS: sodium chloride 0.9% 1,000 ML 999 ML IV (17:20)
[2024-11-28] MEDS: ondansetron 2 mg/ML SDV 2 mL 4 MG IVP (17:20)
[2024-11-28] MEDS: fentaNYL 50 mcg/mL INJ 2mL 25 MCG IVP (17:36)
[2024-11-28] MEDS: hyoscyamine ODT 0.125 mg Tablet PO (17:36)
--- NOTE | 2024-11-28 18:07 | CTR_ITS ---
PROCEDURE INFORMATION: Exam: CT Abdomen And Pelvis With Contrast Exam date and time: 11/28/2024 6:19 PM Age: 54 years old Clinical indication: Abdominal pain; Localized; Lower; Prior surgery; Surgery date: 6+ months; Surgery type: Bypass; Additional info: Lower abd pain, elevated wbc, vomiting TECHNIQUE: Imaging protocol: Computed tomography of the abdomen and pelvis with contrast. Radiation optimization: All CT scans at this facility use at least one of these dose optimization techniques: automated exposure control; mA and/or kV adjustment per patient size (includes targeted exams where dose is matched to clinical indication); or iterative reconstruction. Contrast material: OMNIPAQUE 350; Contrast volume: 100 ml; Contrast route: INTRAVENOUS (IV); COMPARISON: CT angio chest w abd pel w con 11/03/2024 11:39 AM RADIATION DOSE METRICS: Total DLP (mGy-cm): 556.06 FINDINGS: Lungs: Unremarkable. Liver: Subcentimeter hypodensities within liver, too small to characterize but likely represent simple hepatic cysts. Gallbladder and biliary ducts: Status post cholecystectomy. Stable appearance of likely postoperative biliary ductal dilatation. No evidence of obstructing common bile duct calculus or pancreatic lesion. Pancreas: Within normal limits. Spleen: Subcentimeter hypodensity within the spleen, not fully characterized but likely represents simple cyst. Adrenal glands: Normal. No mass. Kidneys and ureters: Normal. No hydronephrosis. Stomach and bowel: There are multiple mildly dilated and severely thickened loops of fluid-filled small bowel. Distended fluid-filled ascending colon. Descending colon is relatively decompressed. There is diffuse mesenteric fat stranding. Appendix: No evidence of appendicitis. Intraperitoneal space: Moderate amount of free abdominopelvic fluid. Vasculature: Unremarkable. No abdominal aortic aneurysm. Lymph nodes: Unremarkable. No enlarged lymph nodes. Urinary bladder: Unremarkable as visualized. Reproductive: Multiple punctate calcifications within the uterus. Bones/joints: Unremarkable. No acute fracture. Soft tissues: Partially visualized bilateral breast implants. CT/CT abdomen pelvis w con* [id number] IMPRESSION: 1. Multiple mildly dilated and significantly thickened fluid-filled loops of small bowel with severe mesenteric inflammatory changes including extensive fat stranding and moderate amount of abdominopelvic free fluid. Constellation of findings concerning for severe ileus versus developing obstruction with underlying infectious/inflammatory process. 2. Numerous punctate calcifications within lower uterine segment, not fully characterized. Nonspecific findings but may represent underlying fibroids. Further evaluation with ultrasound on nonemergent basis may be performed.
[2024-11-28] MEDS: iohexol 350 mg/mL 500 mL Btl (per mL) IV (18:22)
[2024-11-28] MEDS: sodium chloride 0.9% 1,000 ML 150 ML IV (19:41)
[2024-11-28 19:54] LABS: Lactic Sepsis W/Reflex 1.5 mmol/L (0.5-2.2)
--- NOTE | 2024-11-28 21:05 | PM.HP ---
Providers/Chief Complaint Admitting Physician: Jakob Laird MD Primary Care Provider: Robert Reno DO Chief Complaint: Abd pain History of Present Illness Alejandrina Harrison is a 54 year old female who has history of abdominoplasty (robert martell), laparoscopic cholecystectomy, was seen in the ER for abdominal pain nausea vomiting 2 weeks ago was discharged back home, coming back with recurrent symptoms. Patient has not noticed any diarrhea, fever, chest pain or shortness of breath. Patient is stating that her last meal was on Monday when she ate a burger at [employer] she since then she has been vomiting, she has not been able to keep anything down, she is dehydrated. Today she presented to the hospital because her abdominal bloating was getting worse. She is describing her symptoms as feeling full early, bloating, abdominal pain associate with nausea and vomiting Workup in the ER consistent with ileus versus SBO. I looked at her CT scan images, there is moderate fluid collection in her stomach, I requested NG tube to low intermittent suction Patient has leukocytosis however lactic acid is not high, clinical exam not consistent with ischemic colitis there are no signs of peritonitis, she has mild PATTI, takes lisinopril along metoprolol for blood pressure Patient is stating that she has been taking semaglutide for weight loss for at least a year and has lost 32 pounds, she was 200 pounds when she started the medication now she weighs 168 pounds No one else sick at home, Patient is pleasant cooperative hemodynamic stable during my evaluation, I requested NG tube, she is on room air, awake and alert She was questioning whether Ozempic could have caused it, it could definitely be a possibility, however we do not have any objective evidence to be 100% sure at this point Review of Systems Eyes: Denies: change in vision ENMT: Denies: throat pain Card: Denies: chest pain Resp: Denies: dyspnea GI: Reports: abdominal pain, nausea, vomiting and early satiety Medications/Allergies Home Medications ?Medication ?Instructions ?Recorded ?Confirmed ?Last Taken ?Type metoprolol tartrate 25 mg tablet 25 mg PO BID #180 tabs 06/20/24 11/28/24 11/28/24 Rx norgestimate-ethinyl estradiol 1 tab PO DAILY #84 tabs 07/29/24 11/28/24 11/28/24 Rx 0.18 mg/0.215mg/0.25mg-35 mcg(28)tablet (Tri-Linyah) semaglutide (weight loss) 1 mg/0.5 1 mg SUBCUT Q7D 11/03/24 11/28/24 11/25/24 History mL subcutaneous pen injector methylphenidate HCl 20 mg 20 mg PO DAILY 30 days #30 tabs 11/11/24 11/28/24 11/28/24 Rx tablet,extended release escitalopram oxalate 10 mg tablet See Rx Instructions .Route .COMPLEX 11/28/24 11/28/24 11/28/24 History (Lexapro) lisinopril 20 mg tablet 20 mg PO DAILY 11/28/24 11/28/24 11/28/24 History pantoprazole 40 mg tablet,delayed 40 mg PO DAILY 11/28/24 11/28/24 11/28/24 History release Allergies Allergy/AdvReac Type Severity Reaction Status Date / Time buspirone (From [email or web address]) Allergy Unknown Unknown Verified 11/28/24 16:21 penicillin V Allergy Unknown ALGY-Hives Verified 11/28/24 21:24 Sulfa (Sulfonamide Allergy Unknown ALGY-Hives Verified 11/28/24 21:24 Antibiotics) PFSH Acute PFSH: Medical History History of alcohol abuse Depression Vitamin D deficiency Generalized anxiety disorder Seasonal allergies Essential hypertension ADD (attention deficit disorder) has been taking methylphenidate since 2016 Malignant melanoma EILEEN (obstructive sleep apnea) Surgical History H/O abdominoplasty Hx of wisdom tooth extraction Hx of abdominal surgery tummy tuck Hx of breast augmentation Hx of cholecystectomy Vitals/I&O/Wt Last Vital Signs Temp 97.9 F 11/28/24 16:14 Pulse 76 11/28/24 20:50 Resp 16 11/28/24 20:50 BP 115/68 11/28/24 20:50 Pulse Ox 98 11/28/24 20:50 O2 Del Method Room Air 11/28/24 16:14 Weight last 48 hrs Weight 76.204 kg Physical Exam Narrative: Patient is dehydrated Pale complexion GCS 15 Abdomen soft on superficial palpation, DP patient mild tenderness Bowel sounds are very sluggish No active vomiting Dehydrated S1, S2 Currently on room air Nonfocal neuroexam AOx4 Data 11/28/24 16:41 11/28/24 16:41 A&P Assessment and plan (1) Bowel obstruction: (2) Ileus due to infection: (3) Hypokalemia: (4) Dehydration: Plan Ileus versus partial SBO Patient endorsing passage of gas No active emesis Moderate stomach distention with fluid Requested NG tube to low intermittent suction General Surgery consulted from the ER Will keep patient on IV fluids Patient has history of abdominoplasty and laparoscopic cholecystectomy, She has been taking Ozempic for last 1 year Conservative management for now Considering her leukocytosis and possible infectious etiology we will do ceftriaxone and flagyl antibiotics for now which may be discontinued in next 24 hours if she remained clinically and hemodynamically stable, likelihood of C. difficile low Patient has reported allergy to penicillin when she was 8 years old History of hypertension: Hold lisinopril for PATTI, can use hydralazine IV on as-needed basis N.p.o. GI prophylaxis: Protonix Abnormal liver enzymes noted: Monitor for now,: ORTIZ? Patient has lost 32 pounds in 1 year with Ozempic DVT prophylaxis: Heparin PATTI related to dehydration: Anticipating improvement with IV fluids PDMP PDMP Reviewed: Not Reviewed Attestations Medical Necessity Statement*: Patient will need admission to the hospital for management of ileus versus partial SBO, surgery is consulted, most likely will stay more than 2 midnights Diagnoses Bowel obstruction K56.609 Ileus due to infection K56.7; B99.9 Hypokalemia E87.6 Dehydration E86.0
--- NOTE | 2024-11-28 21:40 | PM.CONSULT ---
Providers/Reason For Consult Consulting Physician/Specialty*: Dr. Bragg general surgery Reason for Consult*: Enteritis Attending Physician: Jakob Laird MD Primary Care Provider: Robert Reno DO History of Present Illness History of Present Illness Alejandrina Harrison is a 54 year old female presenting with 1 month of intermittent abdominal pain. Family history of second-degree relatives with both Crohn's and colon cancer. CT scan has demonstrated thickened loops of small bowel consistent with enteritis. Patient continues having bowel movements and passing gas and therefore not clinically obstructed. No hematochezia, no mucous in stools. Never been scoped. Medications/Allergies Home Medications ?Medication ?Instructions ?Recorded ?Confirmed ?Last Taken ?Type metoprolol tartrate 25 mg tablet 25 mg PO BID #180 tabs 06/20/24 11/28/24 11/28/24 Rx norgestimate-ethinyl estradiol 1 tab PO DAILY #84 tabs 07/29/24 11/28/24 11/28/24 Rx 0.18 mg/0.215mg/0.25mg-35 mcg(28)tablet (Tri-Linyah) semaglutide (weight loss) 1 mg/0.5 1 mg SUBCUT Q7D 11/03/24 11/28/24 11/25/24 History mL subcutaneous pen injector methylphenidate HCl 20 mg 20 mg PO DAILY 30 days #30 tabs 11/11/24 11/28/24 11/28/24 Rx tablet,extended release escitalopram oxalate 10 mg tablet See Rx Instructions .Route .COMPLEX 11/28/24 11/28/24 11/28/24 History (Lexapro) lisinopril 20 mg tablet 20 mg PO DAILY 11/28/24 11/28/24 11/28/24 History pantoprazole 40 mg tablet,delayed 40 mg PO DAILY 11/28/24 11/28/24 11/28/24 History release melatonin 10 mg tablet 10 mg PO BEDTIME 11/29/24 11/29/24 2 Days Ago History ~11/27/24 Allergies Allergy/AdvReac Type Severity Reaction Status Date / Time buspirone (From BuSpar) Allergy Unknown Unknown Verified 11/28/24 16:21 penicillin V Allergy Unknown ALGY-Hives Verified 11/28/24 21:24 Sulfa (Sulfonamide Allergy Unknown ALGY-Hives Verified 11/28/24 21:24 Antibiotics) Current Medications Generic Name Dose Route Start Last Admin Trade Name Freq PRN Reason Stop Dose Admin Sodium Chloride 1,000 mls @ 150 mls/hr 11/28/24 19:19 11/28/24 19:41 Sodium Chloride 0.9% IV 11/29/24 01:58 150 mls/hr .Q6H40M ONE Administration PFSH Acute PFSH: Medical History History of alcohol abuse Depression Vitamin D deficiency Generalized anxiety disorder Seasonal allergies Essential hypertension ADD (attention deficit disorder) has been taking methylphenidate since 2016 Malignant melanoma EILEEN (obstructive sleep apnea) Surgical History H/O abdominoplasty Hx of wisdom tooth extraction Hx of abdominal surgery tummy tuck Hx of breast augmentation Hx of cholecystectomy Vitals/I&O/Wt Last Vital Signs Temp 97.9 F 11/28/24 16:14 Pulse 76 11/28/24 20:50 Resp 16 11/28/24 20:50 BP 115/68 11/28/24 20:50 Pulse Ox 98 11/28/24 20:50 O2 Del Method Room Air 11/28/24 16:14 11/28/24 11/28/24 11/28/24 06:59 14:59 22:59 Output Total 325 / 325 Balance -325 / -325 Weight last 48 hrs Weight 168 lb Physical Exam Narrative: Chest: Unlabored breathing room air. No lymphadenopathy. Heart: Regular rate and rhythm. Abdomen: Soft, nontender, nondistended. No masses or lymphadenopathy. Data 11/29/24 04:55 11/29/24 04:55 A&P Assessment and plan (1) Enteritis: Plan 54-year-old female who presents with enteritis. Family history of Crohn's. Suspicious for inflammatory bowel disease. Recommend bowel rest, advancing to clears as able. Will be referred to GI for workup of inflammatory bowel disease and management. PDMP PDMP Reviewed: Not Reviewed Coding Level of Care Code 89046 Diagnoses Enteritis K52.9 Time Spent (min) 30
[2024-11-28 21:42] LABS: Bilirubin Urine Negative (Negative); Blood Urine Non-haemolysed trace (Negative); Glucose Urine UA Negative (Normal); Ketones Urine 1+ (Negative); Leukocyte Esterase Urine Negative (Negative); Nitrate Urine Negative (Negative); Protein Urine Trace (Negative); Urine Appearance Clear (CLEAR); Urine Color Yellow (Yellow); pH Urine 7.5 (5-7)
[2024-11-28 21:47] LABS: Add Urine Microscopic? YES; Bacteria Urine None Seen /hpf; Hyaline Casts Urine 7.01 /lpf; Squamous Epithelial Cell Urine 0-5 /hpf (0-5); WBC Urine 0-5 /hpf (0-5)
[2024-11-28 21:59] LABS: Glucose Point of Care 85 mg/dL (70-110)
[2024-11-28 22:03] LABS: Specific Gravity, Urine 1.062 (1.005-1.030)
--- NOTE | 2024-11-28 22:57 | XRR_ITS ---
PROCEDURE INFORMATION: Exam: XR Chest Exam date and time: 11/28/2024 9:59 PM Age: 54 years old Clinical indication: Device placement; Ng tube; Prior surgery; Surgery date: 6+ months; Surgery type: Gb; Additional info: Verify ng tube placement TECHNIQUE: Imaging protocol: Radiologic exam of the chest. Views: 1 view. COMPARISON: CR (CHEST, ) 11/03/2024 11:54 AM FINDINGS: Lungs: Unremarkable. No consolidation. Pleural spaces: Unremarkable. No pleural effusion. No pneumothorax. Heart/Mediastinum: Unremarkable. No cardiomegaly. Bones/joints: Unremarkable. Gastrointestinal tract: Interval placement of enteric tube which projects over expected location of the stomach. XR/XR chest 1V portable [id number] IMPRESSION: 1. No focal consolidation. 2. Interval placement of enteric tube which projects over expected location of the stomach.
[2024-11-28] MEDS: dextrose 5%-sod chloride 0.9% 1,000 ML 50 ML IV (23:00)
[2024-11-28] MEDS: heparin 5,000 unit/mL INJ 1 mL 5000 UNIT SUBCUT (23:20)
[2024-11-28] MEDS: metroNIDAZOLE IV 500 MG/100 ML PREMIX 100 MG IV (23:21)
[2024-11-28] MEDS: cefTRIAXone 1,000 mg SDV 1000 MG IVP (23:22)
[2024-11-28] MEDS: MELATONIN 3 MG TABLET 9 MG PO (23:44)
[2024-11-29] VITALS (7 sets, daily range): BP systolic 110–139; BP diastolic 70–82; PULSE 67–91; RESP 15–18; TEMP 36.6–36.9; O2SAT 94–99
--- NOTE | 2024-11-29 00:07 | PC.NURSE ---
Dr. Laird gave okay to turn suction to NG tube off for 30 minutes to give PO Melatonin.
[2024-11-29] MEDS: lidocaine 1% 5 ML in potassium chloride premix 100 ML 25 ML IV (00:33)
--- NOTE | 2024-11-29 00:36 | PC.NURSE ---
Patient's potassium running at slower rate because patient was unable to tolerate potassium at full rate due to pain at IV site. IV is patent and intact.
[2024-11-29 04:08] LABS: Glucose Point of Care 85 mg/dL (70-110)
[2024-11-29 05:49] LABS: Basophils # 0.1 10^3/uL (0.0-0.1); Basophils % 1.1 %; Eosinophils # 0.1 10^3/uL (0.0-0.8); Eosinophils % 0.8 %; Hematocrit 34.7 % (36-47); Lymphocytes # 2.5 10^3/uL (0.8-4.8); Lymphocytes % 28.6 %; Mean Corpuscular HGB Conc 33.7 g/dL (30-55); Mean Platelet Volume 10.3 fL (7.4-10.4); Monocytes # 0.8 10^3/uL (0.2-0.9); Monocytes % 8.6 %; Neutrophils # 5.29 10^3/uL (1.8-7.7); Neutrophils % 60.7 %; Nucleated Red Blood Cells % 0 %; Platelet Count 238 10^3/cmm (157-399); Red Cell Distribution Width 12.7 % (12.1-15.1); White Blood Count 8.73 10^3/uL (3.29-11.43)
[2024-11-29 06:15] LABS: Anion Gap 14.5 (5-19); Blood Urea Nitrogen 13 mg/dL (6-20); C Reactive Protein 35.2 mg/L (0.0-4.9); Calcium 7.7 mg/dL (8.5-10.5); Carbon Dioxide 22 mmol/L (22-29); Chloride 106 mmol/L (98-107); Creatinine Clr Calc Pharmacy 72.7409; Glomerular Filtration Rate 58.2 mL/min (90-130); Glucose 86 mg/dL (65-115); Magnesium 1.9 mg/dL (1.7-2.3); Osmolality Calculated 287 mOsm/kg (285-295); Potassium 3.5 mmol/L (3.5-5.1); Sodium 139 mmol/L (136-145)
[2024-11-29 06:40] LABS: Glucose Point of Care 83 mg/dL (70-110)
[2024-11-29] MEDS: heparin 5,000 unit/mL INJ 1 mL 5000 UNIT SUBCUT ×2 (08:17→19:33)
[2024-11-29] MEDS: pantoprazole 40 mg SDV IVP ×2 (08:17→17:05)
--- NOTE | 2024-11-29 08:35 | P.PN_ITS ---
Subjective 2 Subjective: Feeling better this morning Abdomen soft and nontender Passing gas White count down Vitals/I&O/Wt Last Vital Signs Temp 98.2 F 11/29/24 07:51 Pulse 76 11/29/24 08:26 Resp 16 11/29/24 08:26 BP 110/70 11/29/24 07:51 Pulse Ox 97 11/29/24 08:26 O2 Del Method Room Air 11/29/24 08:26 11/28/24 11/29/24 11/29/24 22:59 06:59 14:59 Intake Total 367.5 / 367.5 100.833 / 474.349 1503.167 / 1104.167 Output Total 325 / 325 Balance 42.5 / 42.5 100.833 / 025.303 5366.167 / 1104.167 Weight last 48 hrs Weight 182 lb 3.2 oz Weight 178 lb 9.6 oz Weight 168 lb Physical Exam 2 Narrative: Chest: Unlabored breathing room air. No lymphadenopathy. Heart: Regular rate and rhythm. Abdomen: Soft, nontender, nondistended. No masses or lymphadenopathy. Data 11/29/24 04:55 11/29/24 04:55 A&P Assessment and plan (1) Enteritis: Plan 54-year-old female admitted with enteritis. From a surgical perspective okay to remove NG tube, advance to clears, discharge in the afternoon if she tolerates this well. Will be referred to GI for workup and management of inflammatory bowel disease. PDMP PDMP Reviewed: Not Reviewed Attestations 2 Medical Necessity Statement*: N/A Coding Level of Care Code 49505 Diagnoses Enteritis K52.9 Time Spent (min) 30
[2024-11-29 12:04] LABS: Glucose Point of Care 81 mg/dL (70-110)
--- NOTE | 2024-11-29 13:30 | P.PN_ITS ---
Subjective 2 Subjective: seen this am minimal drainage from NG tube Vitals/I&O/Wt Last Vital Signs Temp 97.8 F 11/29/24 11:14 Pulse 72 11/29/24 11:14 Resp 15 11/29/24 11:14 BP 112/70 11/29/24 11:14 Pulse Ox 96 11/29/24 11:14 O2 Del Method Room Air 11/29/24 11:14 11/28/24 11/29/24 11/29/24 22:59 06:59 14:59 Intake Total 367.5 / 367.5 100.833 / 464.286 9562.167 / 1104.167 Output Total 325 / 325 50 / 50 Balance 42.5 / 42.5 100.833 / 864.506 5964.167 / 1054.167 Weight last 48 hrs Weight 82.645 kg Weight 81.012 kg Weight 76.204 kg Physical Exam 2 Narrative: comfortable in bed GCS 15 Abdomen soft on superficial palpation, DP patient mild tenderness Bowel sounds are very sluggish No active vomiting S1, S2 Currently on room air Nonfocal neuroexam AOx4 Data 11/29/24 04:55 11/29/24 04:55 A&P Assessment and plan (1) Bowel obstruction: (2) Ileus due to infection: (3) Hypokalemia: (4) Dehydration: Plan Ileus versus partial SBO Patient endorsing passage of gas No active emesis Moderate stomach distention with fluid Requested NG tube to low intermittent suction General Surgery consulted from the ER Will keep patient on IV fluids Patient has history of abdominoplasty and laparoscopic cholecystectomy, She has been taking Ozempic for last 1 year Conservative management for now Considering her leukocytosis and possible infectious etiology we will do ceftriaxone and flagyl antibiotics for now which may be discontinued in next 24 hours if she remained clinically and hemodynamically stable, likelihood of C. difficile low Patient has reported allergy to penicillin when she was 8 years old History of hypertension: Hold lisinopril for PATTI, can use hydralazine IV on as- needed basis N.p.o. GI prophylaxis: Protonix Abnormal liver enzymes noted: Monitor for now,: ORTIZ? Patient has lost 32 pounds in 1 year with Ozempic DVT prophylaxis: Heparin PATTI related to dehydration: Anticipating improvement with IV fluids 11/29/2024 From a surgical perspective okay to remove NG tube, advance to clears, discharge in the afternoon if she tolerates this well. Will be referred to GI for workup and management of inflammatory bowel disease. will place on clear liquids diet and advance as tolerated if does well, may consider dc home in AM. will need GI referral as outpatient. PDMP PDMP Reviewed: Not Reviewed Attestations 2 Medical Necessity Statement*: possible dc in Am Diagnoses Bowel obstruction K56.609 Ileus due to infection K56.7; B99.9 Hypokalemia E87.6 Dehydration E86.0
[2024-11-29 16:41] LABS: Glucose Point of Care 81 mg/dL (70-110)
[2024-11-29] MEDS: dextrose 5%-sod chloride 0.9% 1,000 ML 50 ML IV (17:05)
[2024-11-29 19:35] LABS: Glucose Point of Care 91 mg/dL (70-110)
[2024-11-29] MEDS: MELATONIN 3 MG TABLET 9 MG PO (21:16)
[2024-11-30 04:00] VITALS: BP 131/80; PULSE 76; RESP 15; TEMP 36.7; O2SAT 95
[2024-11-30 04:43] LABS: Basophils # 0.1 10^3/uL (0.0-0.1); Basophils % 1.3 %; Eosinophils # 0.1 10^3/uL (0.0-0.8); Eosinophils % 2.4 %; Hematocrit 33.2 % (36-47); Lymphocytes % 38.4 %; Mean Corpuscular HGB Conc 33.1 g/dL (30-55); Mean Corpuscular Hemoglobin 28.8 pg (27-33); Mean Corpuscular Volume 86.9 fl (85-98); Mean Platelet Volume 10.7 fL (7.4-10.4); Monocytes # 0.4 10^3/uL (0.2-0.9); Monocytes % 7.5 %; Neutrophils # 2.66 10^3/uL (1.8-7.7); Neutrophils % 50.2 %; Nucleated Red Blood Cells % 0 %; Platelet Count 192 10^3/cmm (157-399); Red Blood Count 3.82 10^6/uL (3.85-5.65); Red Cell Distribution Width 12.2 % (12.1-15.1); White Blood Count 5.31 10^3/uL (3.29-11.43)
[2024-11-30 04:57] LABS: Anion Gap 10.2 (5-19); Blood Urea Nitrogen 7 mg/dL (6-20); Calcium 7.6 mg/dL (8.5-10.5); Carbon Dioxide 24 mmol/L (22-29); Chloride 106 mmol/L (98-107); Creatinine Clr Calc Pharmacy 89.6535; Glomerular Filtration Rate 75.3 mL/min (90-130); Glucose 92 mg/dL (65-115); Magnesium 1.9 mg/dL (1.7-2.3); Osmolality Calculated 282 mOsm/kg (285-295); Potassium 3.2 mmol/L (3.5-5.1); Sodium 137 mmol/L (136-145)
[2024-11-30 08:00] VITALS: BP 146/89; PULSE 72; RESP 16; TEMP 36.8; O2SAT 97
[2024-11-30] MEDS: pantoprazole DR 40 mg Tablet PO (09:05)
[2024-11-30] MEDS: metoprolol tartrate 25 mg Tablet PO (09:05)
[2024-11-30] MEDS: heparin 5,000 unit/mL INJ 1 mL 5000 UNIT SUBCUT (09:05)
[2024-11-30 10:00] VITALS: PULSE 82; RESP 16; O2SAT 98
[2024-11-30] MEDS: potassium chloride ER 20 mEq Tablet 40 MEQ PO (10:27)
--- OUTSIDE RECORDS SUMMARY | 2024-11-30 10:30 | XMS_ITS | Encounter Summary ---
Author Organization [facility] Address [address] [place] [address] Care Team Providers Care Technical Rep Name Role Phone Unavailable Primary Care Provider Unavailabl e Encounter Details Date Type Department Care Team (Latest Contact Info) Description 04/14/2005 Outpatient Historical [facility] [address] [place] [phone] Roberto [place]burn, [place] [id number] [address] [place] [id number] MYOPIA (Primary Dx) Social History Tobacco Use Types Packs/Day Years Used Date Smoking Tobacco: Never Assessed Comments Unknown Sex and Gender Information Value Date Recorded Sex Assigned at Not on file Legal Sex Female 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
--- OUTSIDE RECORDS SUMMARY | 2024-11-30 10:30 | XMS_ITS | Encounter Summary ---
Author Organization [facility] Address [address] [place] [address] Care Team Providers Care Assistant Professor Of Psychology Name Role Phone Unavailable Primary Care Provider Unavailabl e Encounter Details Date Type Department Care Team (Latest Contact Info) Description 04/18/2005 Outpatient Historical [facility] [place] [address] [place] [address] Roberto [place], [place] [id number] [address] [place] [phone] MYOPIA (Primary Dx) Social History Tobacco Use Types Packs/Day Years Used Date Smoking Tobacco: Never Assessed Comments Unknown Sex and Gender Information Value Date Recorded Sex Assigned at Not on file Legal Sex Female 4:38 AM INCIDENT RESPONSE COORDINATOR Gender Identity Not on file Sexual Orientation Not on file documented as of this encounter Plan of Treatment Not on file documented as of this encounter Visit Diagnoses Diagnosis Myopia- Primary documented in this encounter
--- OUTSIDE RECORDS SUMMARY | 2024-11-30 10:30 | XMS_ITS | Encounter Summary ---
Author Organization [facility] Address [address] [place] [address] Care Team Providers Care Mechanical Maintenance Worker Name Role Phone Unavailable Primary Care Provider Unavailabl e Encounter Details Date Type Department Care Team (Latest Contact Info) Description 04/11/2005 Outpatient Historical [facility] Optometry-[place] [address] [place] [phone] Roberto [place]burn, [place] [id number] [address] [place] [id number] MYOPIA (Primary Dx) Social History Tobacco Use Types Packs/Day Years Used Date Smoking Tobacco: Never Assessed Comments Unknown Sex and Gender Information Value Date Recorded Sex Assigned at Not on file 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
--- OUTSIDE RECORDS SUMMARY | 2024-11-30 10:30 | XMS_ITS | Encounter Summary ---
Author Organization [facility] Address [address] [place] [address] Care Team Providers Care Cone Machine Feeder Name Role Phone Unavailable Primary Care Provider Unavailabl e Encounter Details Date Type Department Care Team (Latest Contact Info) Description 03/31/2005 Outpatient Historical [facility] Optometry-[place] [address] [facility] [address] [place] [phone] Roberto Blackburn, [place] 84255C [address] [place] [phone] MYOPIA (Primary Dx) Social History Tobacco Use Types Packs/Day Years Used Date Smoking Tobacco: Never Assessed Comments Unknown Sex and Gender Information Value Date Recorded Sex Assigned at Not on file Legal Sex Female 4:38 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
--- OUTSIDE RECORDS SUMMARY | 2024-11-30 10:30 | XMS_ITS | Clinical Summary ---
Author Organization [facility] Address [address] 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 Social History Tobacco Use Types Packs/Day Years Used Date Smoking Tobacco: Never Smokeless Tobacco: Never Alcohol Use Standard Drinks/Week Comments No 0 (1 standard drink = 0.6 oz pur e alcohol) Comments Unknown Sex and Gender Information Value Date Recorded Sex Assigned at Not on file Legal Sex Female 3:33 AM MAINSPRING FORMER Gender Identity Not on file Sexual Orientation Not on file Plan of Treatment Health Maintenance Due Date Last Done Comments DTAP/TDAP/TD VACCINES (1 - Tdap) 1991 HEPATITIS B VACCINES (1 of 3 - 19+ 3-dose series) 1991 PAP SMEAR 2002 BREAST CANCER SCREENING 2012 COLORECTAL SCREENING 2017 Colorectal Cancer Screening 2017 FIT-DNA Q 3 years 2017 FIT/FOBT Q 1 year 2017 Flex Sig/CT Colonography Q 5 years 2017 ZOSTER VACCINE (1 of 2) 2022 INFLUENZA VACCINE (#1) 2024 PNEUMOCOCCAL VACCINE 0-49 YEARS Aged Out No longer eligible based on patient's age to complete this topic
--- OUTSIDE RECORDS SUMMARY | 2024-11-30 10:30 | XMS_ITS | Encounter Summary ---
Author Organization [facility] Address [address] [place] [address] Care Team Providers Care Excelsior Machine Operator Name Role Phone Unavailable Primary Care Provider Unavailabl e Encounter Details Date Type Department Care Team (Latest Contact Info) Description 04/05/2005 Outpatient Historical [facility] Optometry[facility] [address] [place] [phone] Roberto [place]burn, [place] [address]16E [place] [place] [phone] MYOPIA (Primary Dx) Social History Tobacco Use Types Packs/Day Years Used Date Smoking Tobacco: Never Assessed Comments Unknown Sex and Gender Information Value Date Recorded Sex Assigned at Not on file Legal Sex Female 4:38 AM 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
--- OUTSIDE RECORDS SUMMARY | 2024-11-30 10:31 | XMS_ITS | Encounter Summary ---
Author Organization [facility] Address [address] [place] [address] Care Team Providers Care Milk Truck Driver Name Role Phone Unavailable Primary Care Provider Unavailabl e Encounter Details Date Type Department Care Team (Latest Contact Info) Description 12/04/[address] [facility] Dermatology- [facility] [place] [address] [place] [address] Sacha Gabriel MD NO ADDRESS ON FILE Other acne (Primary Dx) Social History Tobacco Use Types Packs/Day Years Used Date Smoking Tobacco: Never Assessed Comments Unknown Sex and Gender Information Value Date Recorded Sex Assigned at Not on file Legal Sex Female 4:38 AM BUSINESS OFFICE TECHNOLOGY INSTRUCTOR Gender Identity Not on file Sexual Orientation Not on file documented as of this encounter Plan of Treatment Not on file documented as of this encounter Visit Diagnoses Diagnosis Other acne- Primary documented in this encounter
--- OUTSIDE RECORDS SUMMARY | 2024-11-30 10:31 | XMS_ITS | Encounter Summary ---
Author Organization [facility] Address [address] [place] [address] Care Team Providers Care Behavioral Interventionist Name Role Phone Unavailable Primary Care Provider Unavailabl e Encounter Details Date Type Department Care Team (Latest Contact Info) Description 10/21/1997 Outpatient Historical [facility]- [facility] [place] [address] [place] [address] Sacha Gabriel MD NO ADDRESS ON FILE Other acne (Primary Dx) Social History Tobacco Use Types Packs/Day Years Used Date Smoking Tobacco: Never Assessed Comments Unknown Sex and Gender Information Value Date Recorded Sex Assigned at Not on file Legal Sex Female 4:38 AM INSTRUMENT AND CONTROL SERVICE PERSON Gender Identity Not on file Sexual Orientation Not on file documented as of this encounter Plan of Treatment Not on file documented as of this encounter Visit Diagnoses Diagnosis Other acne- Primary documented in this encounter
--- OUTSIDE RECORDS SUMMARY | 2024-11-30 10:31 | XMS_ITS | Encounter Summary ---
Author Organization [facility] Address [address] [place] [address] Care Team Providers Care Molasses And Caramel Operator Name Role Phone Unavailable Primary Care Provider Unavailabl e Encounter Details Date Type Department Care Team (Latest Contact Info) Description 04/28/2005 Outpatient Historical [facility] Optometry-[place] [address] [facility] [place] [address] Roberto Blackburn, [place] 11950K [address] [place] [phone] MYOPIA (Primary Dx) Social History Tobacco Use Types Packs/Day Years Used Date Smoking Tobacco: Never Assessed Comments Unknown Sex and Gender Information Value Date Recorded Sex Assigned at Not on file Legal Sex Female 4:38 AM AWARD CLERK Gender Identity Not on file Sexual Orientation Not on file documented as of this encounter Plan of Treatment Not on file documented as of this encounter Visit Diagnoses Diagnosis Myopia- Primary documented in this encounter
--- OUTSIDE RECORDS SUMMARY | 2024-11-30 10:31 | XMS_ITS | Encounter Summary ---
Author Organization [facility] Address [address] [place] [address] Care Team Providers Care Oilfield Plant And Field Operator Name Role Phone Unavailable Primary Care Provider Unavailabl e Encounter Details Date Type Department Care Team (Latest Contact Info) Description 09/30/1997 Outpatient Historical [facility] D[facility]atology- [facility] [place] [address] [place] [address] Sacha Gabriel MD NO ADDRESS ON FILE Other acne (Primary Dx) Social History Tobacco Use Types Packs/Day Years Used Date Smoking Tobacco: Never Assessed Comments Unknown Sex and Gender Information Value Date Recorded Sex Assigned at Not on file Legal Sex Female 4:38 AM TRAIN BRAKE OPERATOR Gender Identity Not on file Sexual Orientation Not on file documented as of this encounter Plan of Treatment Not on file documented as of this encounter Visit Diagnoses Diagnosis Other acne- Primary documented in this encounter
--- OUTSIDE RECORDS SUMMARY | 2024-11-30 10:31 | XMS_ITS | Encounter Summary ---
Author Organization [facility] Address [address] [place] [address] Care Team Providers Care Laborer [place] House Name Role Phone Unavailable Primary Care Provider Unavailabl e Encounter Details Date Type Department Care Team (Latest Contact Info) Description 01/15/[address] [facility] Dermatology- [facility] [place] [address] [place] [address] Sacha Gabriel MD NO ADDRESS ON FILE Other acne (Primary Dx) Social History Tobacco Use Types Packs/Day Years Used Date Smoking Tobacco: Never Assessed Comments Unknown Sex and Gender Information Value Date Recorded Sex Assigned at Not on file Legal Sex Female 4:38 AM YOUTH CORRECTIONS OFFICER Gender Identity Not on file Sexual Orientation Not on file documented as of this encounter Plan of Treatment Not on file documented as of this encounter Visit Diagnoses Diagnosis Other acne- Primary documented in this encounter
--- OUTSIDE RECORDS SUMMARY | 2024-11-30 10:31 | XMS_ITS | Encounter Summary ---
Author Organization [facility] Address [address] [place] [address] Care Team Providers Care Golf Course Starter Name Role Phone Unavailable Primary Care Provider Unavailabl e Encounter Details Date Type Department Care Team (Late st Contact Info) Description 10/31/2004 Outpatient Historical [facility] [address] [place] [address] AMBULANCE, [facility] FOOT BONE NOS-CLOSED (Primary Dx) Social History Tobacco Use Types Packs/Day Years Used Date Smoking Tobacco: Never Assessed Comments Unknown Sex and Gender Information Value Date Recorded Sex Assigned at Not on file Legal Sex Female 4:38 AM TOBY MAKER Gender Identity Not on file Sexual Orientation Not on file documented as of this encounter Plan of Treatment Not on file documented as of this encounter Visit Diagnoses Diagnosis Closed fracture of unspecified bone(s) of foot (except toes)- Primary documented in this encounter
--- OUTSIDE RECORDS SUMMARY | 2024-11-30 10:31 | XMS_ITS | Encounter Summary ---
Author Organization [facility] Address [address] [place] [address] Care Team Providers Care Supervisor Typesetting Name Role Phone Unavailable Primary Care Provider Unavailabl e Encounter Details Date Type Department Care Team (Latest Contact Info) Description 03/19/1998 Outpatient Historical [facility] Dermatology- [facility] [place] [address] [place] [address] Sacha Gabriel MD NO ADDRESS ON FILE Other acne (Primary Dx) Social History Tobacco Use Types Packs/Day Years Used Date Smoking Tobacco: Never Assessed Comments Unknown Sex and Gender Information Value Date Recorded Sex Assigned at Not on file Legal Sex Female 4:38 AM PHARMACISTS Gender Identity Not on file Sexual Orientation Not on file documented as of this encounter Plan of Treatment Not on file documented as of this encounter Visit Diagnoses Diagnosis Other acne- Primary documented in this encounter
--- OUTSIDE RECORDS SUMMARY | 2024-11-30 10:31 | XMS_ITS | Data Portability ---
Author Organization ELSIE Eleazar [facility] Sachi Goldsmith [facility] Address [address] [address] Assessment No assessment recorded. Plan of Treatment Reminders Order Date Submit Date Provider Last Modified By Organization Details Last Modified Time Details Appointments RECHECK 2024 07:20A M Shayne Tom, DO Not available Not available Not available Lab None recorded. Referral None recorded. Procedures None recorded. Surgeries None recorded. Imaging None recorded. Medication Orders Tri-Linya h (28) 0.18 mg(7)/0.2 15 mg(7)/0.2 5 mg(7)-0.0 35 mg tablet 2024 025 [facility], [address] [place] [address], [address], 11/22/2024 13:29:05 lisinopri l 20 mg tablet 2024 025 [facility], [address] [place] [address], [address], 11/22/2024 16:44:40 metoprolo l tartrate 25 mg tablet 2024 025 [facility], [address] [place] [address], [address], 11/22/2024 13:29:06 fluoxetin e 20 mg tablet 2024 025 [facility], [address] [place] [address], [address], 11/22/2024 13:29:07 pantopraz ole 40 mg tablet,de layed release 2024 025 [facility], [address] [place], [address], 11/26/2024 15:20:37 doxycycli ne hyclate 100 mg capsule 2023 025 [id number], [address], [address], 11/22/2024 12:30:16 prednison e 20 mg tablet 2023 025 [id number], [address], [address], 11/22/2024 12:30:52 Patient TargetsNo targets recorded. Patient Instructions Encounter Date Encounter Id Patient Instructions Last Modified By Organization Details Last Modified Time 12/14/2022 [id number] colonoscopy prep - miralax [email or web address] Not available 12/14/2022 08:49:04 colonoscopy education [email or web address] Not available 12/14/2022 08:49:04 colonoscopy education [email or web address] Not available 12/14/2022 08:49:04 Reason for Referral None Reported. Problems Name Problem SNOMED Code Status Onset Date Resolution Date Notes Provider Name and Address Organization Details Recorded Time Essential hypertension 53235977 Active 2024 Shayne Tom DO [address] [place] [address], [phone], [facility] 13:05:12 Gastric ulcer 355898813 Active 2024 Shayne Tom DO [address] [place] [address], [phone], [facility] 13:10:33 Uses oral contraception 6368560 Active 2024 Shayne Tom DO [address] [place] [address], [place], [address], [facility] 5 13:11:16 Mixed anxiety and depressive disorder 432938642 Active 2024 Shayne Tom DO [address] [place], [address], [facility] 5 13:11:20 Problem Notes None recorded. Procedures Surgical History Date Name Laterality Status Provider Name and Address Organization Details Recorded Time Cholecystectomy completed JESI LUCY [facility] 12/14/2022 08:16:34 Imaging Results None recorded. Procedure Notes None recorded. Medical Equipment None Reported. Allergies Allergen ID Allergen Name Allergen Category Reaction Reaction Severity Criticality Documentation Date Start Date Code Code System Note Provider Name and Address Organization Details Recorded Time 1001 Product containin g penicilli n (product) medicatio n Not available Not available Not available 12/14/2022 93479 8001 [facility] 08:13:26 93451 penicilli n G potassium medicatio n Not available Not available Not available 04/08/2023 3 RxNorm Comme nt: Recor ded 04/03 2:59P M by Caren serrano RN, Offic e Visit ; Promo len; Signi aidan ce: *; Reaso n: Drug aller gy; ; Not Available [facility] 3 02:25:05 Medications Name Sig Start Date Stop Date Status Note LastModified by Organization Details LastModified Time burpr/nal tr/phente r/chrom 75mg/1.5m g/17mg/40 0mcg TAKE ONE CAPSULE BY MOUTH EVERY DAY 01/21 completed Not Available Not Available Not Available doxycycli ne hyclate 100 mg capsule TAKE 1 CAPSULE BY MOUTH TWICE A DAY FOR 10 DAYS 11/22 completed Not Available Not Available Not Available methylphe nidate 20 mg tablet Take 1 tablet twice a day by oral route. 11/22 completed Not Available Not Available Not Available lisinopri l 20 mg tablet Take 1 tablet every day by oral route in the morning for 30 days, for blood pressure . 2024 active Not Available Not Available Not Avai lable ondansetr on HCl 4 mg tablet TAKE ONE TABLET BY MOUTH EVERY 4 HOURS NEEDED 11/22 completed Not Available Not Available Not Available prednison e 20 mg tablet TAKE 1 TABLET BY MOUTH EVERY DAY FOR 7 DAYS 11/22 completed Not Available Not Available Not Available pantopraz ole 40 mg tablet,de layed release Take by oral route for 30 days. active Not Available Not Available No t Available fluoxetin e 20 mg tablet Take 1 tablet every day by oral route for 90 days, for mood. 2024 active Not Available Not Available Not Avai lable methylphe nidate ER 20 mg tablet,ex tended release TAKE ONE TABLET BY MOUTH DAILY for 30 DAYS active Not Available Not Available No t Available fluoxetin e 20 mg capsule TAKE ONE CAPSULE BY MOUTH DAILY 01/21 completed Not Available Not Available Not Available Lexapro 10 mg tablet Take 1 tablet every day by oral route. 11/22 completed Not Available Not Available Not Available Sprintec (28) 0.25 mg-0.035 mg tablet Daily 01/21 completed 0; Recorded 04/03/20 22 2:59PM by Caren Foley RN, Office Visit; Not Available Not Available Not Available bupropion HCl XL 150 mg 24 hr tablet, extended release TAKE ONE TABLET BY MOUTH EVERY MORNING DAILY 11/22 completed Not Available Not Available Not Available metoprolo l tartrate 25 mg tablet Take 1 tablet twice a day by oral route for 90 days, for blood pressure . 2024 active Not Available Not Available Not Avai lable topiramat e 50 mg tablet TAKE ONE TABLET BY MOUTH DAILY 11/22 completed Not Available Not Available Not Available Tri-Linya h (28) 0.18 mg(7)/0.2 15 mg(7)/0.2 5 mg(7)-0.0 35 mg tablet Take 1 tablet every day by oral route as directed . 2024 active Not Available Not Available Not Avai lable topiramat e XR 50 mg capsule sprinkle, extended release 24 hr 11/22 completed Not Available Not Available Not Available methylphe nidate Daily 01/21 completed 0; Recorded 04/03/20 3:00PM by Caren Foley RN, Office Visit; Not Available Not Available Not Available Vitals Date Recorded Body weight Body mass index (BMI) Body height Oxygen saturation Oxygen saturation in Arterial blood by Pulse oximetry Heart rate Respiratory rate Provider Name and Address Organization Details Last Updated DateTime 4 72498.1 4 g 29.9 kg/m2 170.18 cm 97 % 97 % 87 /min 18 /min [facility] 4 12:17:02 Date Recorded Body height Body mass index (BMI) Body weight Oxygen saturation Oxygen saturation in Arterial blood by Pulse oximetry Heart rate Respiratory rate Systolic blood pressure Diastolic blood pressure Provider Name and Address Organization Details Last Updated DateTime 5 170.18 cm 26.9 kg/m2 42347.8 9 g 99 % 99 % 92 /min 18 /min 152 mm[Hg] 104 mm[Hg] [facility] 5 12:38:01 Date Recorded Body height Body mass index (BMI) Body weight Oxygen saturation Oxygen saturation in Arterial blood by Pulse oximetry Heart rate Respiratory rate Body temperature Systolic blood pressure Diastolic blood pressure Provider Name and Address Organization Details Last Updated DateTime 3 170.18 cm 30.1 kg/m2 14219.7 4 g 97 % 97 % 78 /min 20 /min 97.8 [degF] 150 mm[Hg] 88 mm[Hg] [facility] 3 08:20:42 Social History Question Answer Notes LastModified by Organizat ion Details LastModified Time What Is Your Level Of Alcohol Consumption? Occasional [email or web address] Information not available 12/14/2022 Do You Use Any Illicit Or Recreational Drugs? No [email or web address] Information not available 12/14/2022 Do You Or Have You Ever Used Any Other Forms Of Tobacco Or Nicotine? No [email or web address] Information not available 12/14/2022 Sex: Unknown Functional Status None recorded. Mental Status None recorded. Family History Nothing Reported. Medical History No medical history recorded. Gynecological HistoryNo gynecological history recorded. Obstetrics History GPAL:G 0 P 0 0 0 0 Past Encounters Encounter ID Performer Location Encounter Start Date Encounter Closed Date Diagnosis/Indication Diagnosis SNOMED-CT Code Diagnosis ICD10 Code Diagnosis Note [id number] [facility] ([facility]) [address] [place] [address] 12/14/2022 08:05:19 12/21/2022 22:11:22 Screening for malignant neoplasm of colon 940812880 Z12.11 Hematochezia 735442248 K 92.1 intermitta nt, proceed with colonoscop y Chronic ab dominal pain 994139868 R10.9 with hematochez ia, progressin g for 8+ mts. also with fhx colonrecta l cancer. counseled pt on diet. I have reviewed and discussed colon cancer screening options, including colonoscop y. Discussed risks vs benefits including risk of infection and bleeding, perforatio n, possible need for surgery, reaction to medication s, and sever injury or . We discussed pt requiring sedation and possible general anesthesia . Pt agrees to proceed with Colonoscop y at [facility]. Preliminar y procedure date will be 01/26/23 Adult atte ntion deficit hyperactivity disorder 891460077 F90.9 stable on methylphen idate Moderate r ecurrent major depression 96451241 F33.1 stable. continue lexapro [id number] Shayne Tom DO [facility]) [address] [place] [phone] 02/16/2023 12:23:15 02/17/2023 03:54:41 [id number] Shayne Tom DO [facility]) [address] [place] [phone] 01/22/2024 11:42:13 01/22/2024 12:51:52 Cough 29393970 R05.9 Acute sinusitis 31179535 J01.90 I counseled pt on diagnosis and treatment. we will start abx, steroids, pt to take OTC antihistam ine. return if not improving in 1-2 wks. [id number] Shayne Tom DO [facility] ([facility]) [address] [place] [address] 11/22/2024 11:49:38 11/22/2024 14:19:42 Essential hypertension 10267513 I10 worsening, will add lisinopril to metoprolol to help diastolic bp. monitor bp BID. counseledf /u 1 mt Gastric ulcer 512764360 K25.3 recent/acu te. increaese PPI to pantoprazo le BID for 2 wks, then once daily. counseled on diet. Mixed anxi ety and depressive disorder 560418342 F41.8 stable. continue prozac Uses oral contraception 9959553 Z30.41 continue OCPs. counseled Health Concerns Section Related Observation LastModified by Organization Detai ls LastModified Time None Recorded Concern Status LastModified by Organization Details LastModified Time None Recorded Advance Directives Directive None Recorded Payers Encounter Date Sequence Insurance Name Policy Number Policy Ruelas Covered Member ID Ruelas Member ID Guarantor Name 12/14/2022 1 R [id number] Alejandrina Harrison [id number] Alejandrina Harrison 01/26/2023 1 R [id number] Alejandrina Harrison [id number] Alejandrina Harrison 01/22/2024 1 R [id number] Alejandrina Harrison [id number] Alejandrina Gary Christy 11/22/2024 1 R [id number] Alejandrina Harrison [id number] Alejandrina Harrison Notes Date Note Type Note Provider Name and Address Organization Details Recorded Time 3 text/html Colonoscopy ScreeningReported bypatient.GI Symptoms:abdominal pain;diarrhea;constipatio n;increase in bowel movements;change in the stool;rectal bleeding;harder or firmer stools;looser or softer stools Associated Symptoms:decreased appetite Context:no prior examination; no history of colon polyps; no history of ulcerative colitis or Crohn's Disease Family History:colon cancer The patient presents today at the request of {{ #}} for evaluation and discussion of colonoscopy due to chronic abd pain, IBS, bloody stools. All started 8 mts ago. Last Colon Cancer screening: {{ Dr. Sanchez 12ish year ago #}} Problems with anesthesia in the past: NONE Family History of Colon cancers: 2 grandfathers Blood Thinners: NONE Co-morbidities: None Shayne Tom DO [address] [place] [address], [phone], [facility] 12/14/2022 08:49:06 3 text/html I performed an EGD and/or a Colonoscopy today on this patient at [facility]. Please see operative note for details. Shayne Tom DO [address] [place] [address], [phone], [facility] 02/20/2023 11:32:49 4 text/html Sinusitis/AllergyReported bypatient.Quality:weak voice;hoarseness;congeste d;productive cough Severity:moderate Duration:frequent Associated Symptoms:nasal discharge from both nostrils;cough productive;difficulty breathing;nausea or vomiting;sinus pain;sore throat;nasal discharge;ear fullness pt c/o flu like sx, started 5 days ago. cough is worse at night, chest congestion, headaches, body aches Shayne Tom DO [address] [place] [address], [phone], [facility] 01/22/2024 12:47:41 5 text/html HypertensionReported bypatient.Quality:pressur e Severity:Grade 2 (>/=140/90) Associated Symptoms:no shortness of breath; no fatigue; no palpitations f/u HTN pt c/o HTN, taking metoprolol 25mg BID. has noticed bp running high over the past few months. has log present. denies any chest pain, sob, edema was in ER 2 wks ago, was dx with ulcer. pt was started on Prilosec, took medication for 2 weeks. sx were improving. would like to discuss starting another medicaton Shayne Tom DO [address] [place] [address], [phone], [facility], [facility]achi 11/22/2024 13:21:04 OBGyn Episode No OBEpisode recorded.
--- OUTSIDE RECORDS SUMMARY | 2024-11-30 10:31 | XMS_ITS | Encounter Summary ---
Author Organization [facility] Address [address] [place] [address] Care Team Providers Care Dean Of Admissions Name Role Phone Unavailable Primary Care Provider Unavailabl e Encounter Details Date Type Department Care Team (Latest Contact Info) Description 10/15/2004 Outpatient Historical [facility] Op[facility] [address] [place] [phone] Marlena Morton MD [address] [place] [phone] MYOPIA (Primary Dx); CORNEAL OPACITY NOS Social History Tobacco Use Types Packs/Day Years Used Date Smoking Tobacco: Never Assessed Comments Unknown Sex and Gender Information Value Date Recorded Sex Assigned at Not on file Legal Sex Female 4:38 AM [employer]YING [employer] Gender Identity Not on file Sexual Orientation Not on file documented as of this encounter Plan of Treatment Not on file documented as of this encounter Visit Diagnoses Diagnosis Myopia- Primary Corneal opacity, unspecified documented in this encounter
--- OUTSIDE RECORDS SUMMARY | 2024-11-30 10:31 | XMS_ITS | Encounter Summary ---
Author Organization [facility] Address [address] [place] [address] Care Team Providers Care Clinical Associate Name Role Phone Unavailable Primary Care Provider Unavailabl e Encounter Details Date Type Department Care Team (Latest Contact Info) Description 03/17/2005 Outpatient Historical [facility] [address] [facility] [address] [place] [phone] [place], [place] [address] [place] [phone] REGULAR ASTIGMATISM (Primary Dx) Social History Tobacco Use Types Packs/Day Years Used Date Smoking Tobacco: Never Assessed Comments Unknown Sex and Gender Information Value Date Recorded Sex Assigned at Not on file 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
--- OUTSIDE RECORDS SUMMARY | 2024-11-30 10:31 | XMS_ITS | Clinical Summary ---
Author Organization [facility] Cherdeonna tone Address [address] [place] [place] [address] Care Team Providers Care Babbitter Name Role Phone Unavailable Primary Care Provider Unavailabl e Allergies Active Allergy Reactions Criticality Noted Date Comments Penicillins Rash,Swelling Low 12/09/2011 Medications ZOLPIDEM TARTRATE (AMBIEN ORAL) Take by mouth. Active NORGESTIMATE-ETH INYL ESTRADIOL (SPRINTEC, 28, ORAL) Take by mouth. Active ibuprofen (MOTRIN) 200 mg Oral Cap Take by mouth. As needed Active CETIRIZINE HCL (ZYRTEC ORAL) Take by mouth. Active LORATADINE (CLARITIN ORAL) Take by mouth. 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 Gender Identity Not on file Sexual Orientation Not on file Last Filed Vital Signs Vital Sign Reading Time Taken Comments Blood Pressure 153/94 12/15/2011 8:34 AM CDT Pulse 85 12/09/2011 1:58 PM CDT Temperature - - Respiratory Rate - - Oxygen Saturation - - Inhaled Oxygen Concentration - - Weight 87.5 kg (193 lb) 12/15/2011 8:34 AM CDT Height 172.7 cm (5' 8 ) 12/15/2011 8:34 AM CDT Body Mass Index 29.35 12/15/2011 8:34 AM CDT Plan of Treatment Health Maintenance Due Date Last Done Comments DTAP/TDAP/TD VACCINES (1 - Tdap) 1991 HEPATITIS B VACCINES (1 of 3 - 19+ 3-dose series) 1991 PAP SMEAR 1993 CERVICAL CANCER SCREENING 2002 HPV/Cotest 2002 PAP SMEAR 2002 BREAST CANCER SCREENING 2012 COLORECTAL SCREENING 2017 Colorectal Cancer Screening 2017 FIT-DNA Q 3 years 2017 FIT/FOBT Q 1 year 2017 Flex Sig/CT Colonography Q 5 years 2017 ZOSTER VACCINE (1 of 2) 2022 INFLUENZA VACCINE (#1) 2024 PNEUMOCOCCAL VACCINE 0-49 YEARS Aged Out No longer eligible based on patient's age to complete this topic Insurance OPEN ACCESS PLUS
--- OUTSIDE RECORDS SUMMARY | 2024-11-30 10:31 | XMS_ITS | Encounter Summary ---
Author Organization [facility] Address [address] [place] [address] Care Team Providers Care Jig Maker Name Role Phone Unavailable Primary Care Provider Unavailabl e Encounter Details Date Type Department Care Team (Latest Contact Info) Description 04/19/2005 Outpatient Historical [facility] [address] [facility] [address] [place] [phone] Roberto [place], [place] [address] [place] [phone] MYOPIA (Primary Dx) Social History Tobacco Use Types Packs/Day Years Used Date Smoking Tobacco: Never Assessed Comments Unknown Sex and Gender Information Value Date Recorded Sex Assigned at Not on file 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
--- OUTSIDE RECORDS SUMMARY | 2024-11-30 10:31 | XMS_ITS | Continuity of Care Document ---
Author Organization [facility] - Sachi Lara, [facility] ([facility]) Address [address] [place] [address] Assessment No assessment recorded. Plan of Treatment Reminders Order Date Submit Date Provider Last Modified By Organization Details Last Modified Time Details Appointments RECHECK 2024 07:20A Monik Tom, DO Not available Not available Not available Lab None recorded. Referral None recorded. Procedures None recorded. Surgeries None recorded. Imaging None recorded. Medication Orders Tri-Linya h (28) 0.18 mg(7)/0.2 15 mg(7)/0.2 5 mg(7)-0.0 35 mg tablet 2024 025 [facility], [address] [place] [address], [id number], 11/22/2024 13:29:05 lisinopri l 20 mg tablet 2024 025 [facility], [address] [place] [address], [address], 11/22/2024 16:44:40 metoprolo l tartrate 25 mg tablet 2024 025 [facility], [address] [place] [address], [address], 11/22/2024 13:29:06 fluoxetin e 20 mg tablet 2024 025 [facility], [address] [place] [address], [address], 11/22/2024 13:29:07 pantopraz ole 40 mg tablet,de layed release 2024 025 [facility], [address] [place] [address], [address], 11/26/2024 15:20:37 Patient TargetsNo targets recorded. Patient InstructionsNo instructions recorded. Reason for Referral None Reported. Problems Name Problem SNOMED Code Status Onset Date Resolution Date Notes Provider Name and Address Organization Details Recorded Time Essential hypertension 72176639 Active 2024 Shaynegama Tom [address], [address], [facility] 13:05:12 Gastric ulcer 914787235 Active 2024 Shayne Tom, [address], [address], [facility] 13:10:33 Uses oral contraception 3523284 Active 2024 Shayne Tom, [address], [address], [facility] 13:11:16 Mixed anxiety and depressive disorder 649800328 Active 2024 Shayne Tom, [address], [address], [facility] 13:11:20 Problem Notes None recorded. Procedures Surgical History Date Name Laterality Status Provider Name and Address Organization Details Recorded Time Cholecystectomy completed JESI AYALA [facility] 12/14/2022 08:16:34 Imaging Results None recorded. Procedure Notes None recorded. Medical Equipment None Reported. Allergies Allergen ID Allergen Name Allergen Category Reaction Reaction Severity Criticality Documentation Date Start Date Code Code System Note Provider Name and Address Organization Details Recorded Time 1001 Product containin g penicilli n (product) medicatio n Not available Not available Not available 12/14/2022 59406 8001 SNOMED JESI AYALA null, [place] - [facility], [facility] 3 08:13:26 67300 penicilli n G potassium medicatio n Not available Not available Not available 04/08/202390427 3 RxNorm Comme nt: Recor ded 04/03 2:59P M by Caren serrano RN, Offic e Visit ; Promo len; Ramos bermudez ce: *; Reaso n: Drug aller gy; ; Not Available [facility] 3 02:25:05 Medications Name Sig Start Date [...] nidate Daily 01/21 completed 0; Recorded 04/03/20 22 3:00PM by Caren Foley RN, Office Visit; Not Available Not Available Not Available Vitals Date Recorded Body height Body mass index (BMI) Body weight Oxygen saturation Oxygen saturation in Arterial blood by Pulse oximetry Heart rate Respiratory rate Systolic blood pressure Diastolic blood pressure Provider Name and Address Organization Details Last Updated DateTime 5 170.18 cm 26.9 kg/m2 93839.8 9 g 99 % 99 % 92 /min 18 /min 152 mm[Hg] 104 mm[Hg] [facility] 5 12:38:01 Social History Question Answer Notes LastModified by Organizat ion Details LastModified Time What Is Your Level Of Alcohol Consumption? Occasional Information not available 12/14/2022 Do You Use Any Illicit Or Recreational Drugs? No [email or web address] Information not available 12/14/2022 Do You Or Have You Ever Used Any Other Forms Of Tobacco Or Nicotine? No [email or web address] Information not available 12/14/2022 Sex: Unknown Functional Status None recorded. Mental Status None recorded. Family History Nothing Reported. Medical History No medical history recorded. Gynecological HistoryNo gynecological history recorded. Obstetrics History GPAL:G 0 P 0 0 0 0 Past Encounters Encounter ID Performer Location Encounter Start Date Encounter Closed Date Diagnosis/Indication Diagnosis SNOMED-CT Code Diagnosis ICD10 Code Diagnosis Note [id number] Shaynegama TomDO [facility] ([facility]) [address] [place] [address] 11/22/2024 11:49:38 11/22/2024 14:19:42 Essential hypertension 74046492 I10 worsening, will add lisinopril to metoprolol to help diastolic bp. monitor bp BID. counseledf /u 1 mt Gastric ulcer 733747690 K25.3 recent/acu te. increaese PPI to pantoprazo le BID for 2 wks, then once daily. counseled on diet. Mixed anxi ety and depressive disorder 983318745 F41.8 stable. continue prozac Uses oral contraception 1418221 Z30.41 continue OCPs. counseled Health Concerns Section Related Observation LastModified by Organization Detai ls LastModified Time None Recorded Concern Status LastModified by Organization Details LastModified Time None Recorded Payers Encounter Date Sequence Insurance Name Policy Number Policy Ruelas Covered Member ID Ruelas Member ID Guarantor Name 11/22/2024 1 [facility] [id number] Alejandrina Harrison [id number] Alejandrina Harrison Notes Date Note Type Note Provider Name and Address Organization Details Recorded Time 5 text/html HypertensionReported bypatient.Quality:pressur e Severity:Grade 2 [...] like to discuss starting another medicaton Shayne Tom, DO [address] [place] [address], [phone], [facility] - [facility], Sachi 11/22/2024 13:21:04 OBGyn Episode No OBEpisode recorded.
--- OUTSIDE RECORDS SUMMARY | 2024-11-30 10:31 | XMS_ITS | Encounter Summary ---
Author Organization [facility] Address [address] [place] [address] Care Team Providers Care Novelty Dipper Name Role Phone Unavailable Primary Care Provider Unavailabl e Encounter Details Date Type Department Care Team (Latest Contact Info) Description 04/12/2007 Outpatient Historical [facility] [address] [place] [phone] Roberto [place], [place] [address]K [address] [place] [phone] Irregular Astigmatism (Primary Dx) Social History Tobacco Use Types Packs/Day Years Used Date Smoking Tobacco: Never Assessed Comments Unknown Sex and Gender Information Value Date Recorded Sex Assigned at Not on file 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
--- OUTSIDE RECORDS SUMMARY | 2024-11-30 10:31 | XMS_ITS | Encounter Summary ---
Author Organization [facility] Address [address] [place] [address] Care Team Providers Care Senior Policy Analyst Name Role Phone Unavailable Primary Care Provider Unavailabl e Encounter Details Date Type Department Care Team (Latest Contact Info) Description 03/23/2005 Outpatient Historical [facility]-[place] [address] [place] [phone] Roberto [place], [place] [address]U [address] [place] [phone] MYOPIA (Primary Dx) Social History Tobacco Use Types Packs/Day Years Used Date Smoking Tobacco: Never Assessed Comments Unknown Sex and Gender Information Value Date Recorded Sex Assigned at Not on file 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
--- OUTSIDE RECORDS SUMMARY | 2024-11-30 10:31 | XMS_ITS | Encounter Summary ---
Author Organization [facility] Address [address] [place] [address] Care Team Providers Care Chlorinator Operator Name Role Phone Unavailable Primary Care Provider Unavailabl e Encounter Details Date Type Department Care Team (Latest Contact Info) Description 04/25/2005 Outpatient Historical [facility] [address] [place] [phone] Roberto [place]burn, [place] [address]O [address] [place] [phone] REFRACTION DISORDER NOS (Primary Dx) Social History Tobacco Use Types Packs/Day Years Used Date Smoking Tobacco: Never Assessed Comments Unknown Sex and Gender Information Value Date Recorded Sex Assigned at Not on file 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
--- OUTSIDE RECORDS SUMMARY | 2024-11-30 10:31 | XMS_ITS | Encounter Summary ---
Author Organization [facility] Address [address] [place] [address] Care Team Providers Care Ice Puller Name Role Phone Unavailable Primary Care Provider Unavailabl e Encounter Details Date Type Department Care Team (Latest Contact Info) Description 08/09/2000 Outpatient Historical [facility] Robert Graandos MD [facility] [address] [place], [place] [phone] Sprain of neck (Primary Dx); Hematuria; Nausea alone Social History Tobacco Use Types Packs/Day Years Used Date Smoking Tobacco: Never Assessed Comments Unknown Sex and Gender Information Value Date Recorded Sex Assigned at Not on file 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
[2024-11-30 11:18] VITALS: BP 159/93; PULSE 72; RESP 16; TEMP 36.4; O2SAT 97
--- NOTE | 2024-11-30 12:20 | P.DS_ITS ---
Discharge Providers Date of Admission: 11/28/24 19:43 Date of Discharge: November 30, 2024 Attending Provider at Admission: Jakob Laird MD Attending Provider at Discharge: Patria Cui MD Primary Care Provider: Robert Reno DO Diagnoses at Discharge Discharge Diagnosis (1) Bowel obstruction: Status: Resolved (2) Ileus due to infection: Status: Resolved (3) Hypokalemia: Status: Resolved (4) Dehydration: Status: Resolved Reason for Visit Reason for Visit: Abd pain Hospital Course Hospital Course Patient was admitted for ileus versus partial small bowel obstruction. NG tube was placed with minimal drainage. She was kept on ceftriaxone Flagyl however since she remained asymptomatic there were discontinued. She was seen by general surgery as well. Patient's diet was advanced and she was tolerating GI soft diet and was discharged home in stable condition to follow-up with GI as an outpatient. All questions were answered on day of discharge. Patient was advised to come back to the hospital if she has any further symptoms. Patient does have a family history of Crohn's disease and has had GI issues for a long time. She has never seen a operation shift supervisor before Physical Exam Narrative: comfortable in bed GCS 15 Abdomen soft, nontender. Bowel sounds are very sluggish No active vomiting S1, S2 Currently on room air Nonfocal neuroexam AOx4 Discharge Data Studies Completed and Pending Completed Studies During Hospitalization Category Date Time Status CT abdomen pelvis w con* [id number] Stat Cat Scan 11/28/24 18:07 Completed CXRP [XR chest 1V portable [id number]] Routine Exams 11/28/24 22:57 Completed XR KUB portable [id number] Stat Exams 11/28/24 16:57 Completed Radiology Impressions KUB X-Ray 11/28/24 16:57 IMPRESSION: Nonobstructive bowel gas pattern. Abdomen/Pelvis CT 11/28/24 18:07 IMPRESSION: 1. Multiple mildly dilated and significantly thickened fluid-filled loops of small bowel with severe mesenteric inflammatory changes including extensive fat stranding and moderate amount of abdominopelvic free fluid. Constellation of findings concerning for severe ileus versus developing obstruction with underlying infectious/inflammatory process. 2. Numerous punctate calcifications within lower uterine segment, not fully characterized. Nonspecific findings but may represent underlying fibroids. Further evaluation with ultrasound on nonemergent basis may be performed. Chest X-Ray 11/28/24 22:57 IMPRESSION: 1. No focal consolidation. 2. Interval placement of enteric tube which projects over expected location of the stomach. Laboratory Results WBC 5.31 10^3/uL (3.29-11.43) 11/30/24 04:06 RBC 3.82 10^6/uL (3.85-5.65) L 11/30/24 04:06 Hgb 11.00 g/dL (11.27-16.99) L 11/30/24 04:06 Hct 33.2 % (36-47) L 11/30/24 04:06 MCV 86.9 fl (85-98) 11/30/24 04:06 MCH 28.8 pg (27-33) 11/30/24 04:06 MCHC 33.1 g/dL (30-55) 11/30/24 04:06 RDW 12.2 % (12.1-15.1) 11/30/24 04:06 Plt Count 192 10^3/cmm (157-399) 11/30/24 04:06 MPV 10.7 fL (7.4-10.4) H 11/30/24 04:06 Neut % (Auto) 50.2 % 11/30/24 04:06 Lymph % (Auto) 38.4 % 11/30/24 04:06 Ralls % (Auto) 7.5 % 11/30/24 04:06 Eos % (Auto) 2.4 % 11/30/24 04:06 Baso % (Auto) 1.3 % 11/30/24 04:06 Neut # (Auto) 2.66 10^3/uL (1.8-7.7) 11/30/24 04:06 Lymph # (Auto) 2.0 10^3/uL (0.8-4.8) 11/30/24 04:06 Ralls # (Auto) 0.4 10^3/uL (0.2-0.9) 11/30/24 04:06 Eos # (Auto) 0.1 10^3/uL (0.0-0.8) 11/30/24 04:06 Baso # (Auto) 0.1 10^3/uL (0.0-0.1) 11/30/24 04:06 Nucleated RBC % (auto) 0 % 11/30/24 04:06 Nucleated RBCs # 0.0 /100WBC 11/30/24 04:06 Sodium 137 mmol/L (136-145) 11/30/24 04:06 Potassium 3.2 mmol/L (3.5-5.1) L 11/30/24 04:06 Chloride 106 mmol/L (98-107) 11/30/24 04:06 Carbon Dioxide 24 mmol/L (22-29) 11/30/24 04:06 Anion Gap 10.2 (5-19) 11/30/24 04:06 BUN 7 mg/dL (6-20) 11/30/24 04:06 Creatinine 0.8 mg/dL (0.5-0.9) 11/30/24 04:06 GFR Calculation 75.3 mL/min (90-130) L 11/30/24 04:06 Glucose 92 mg/dL (65-115) 11/30/24 04:06 POC Glucose 91 mg/dL (70-110) 11/29/24 19:32 Calculated Osmolality 282 mOsm/kg (285-295) L 11/30/24 04:06 Lactic Acid 1.5 mmol/L (0.5-2.2) 11/28/24 16:41 Calcium 7.6 mg/dL (8.5-10.5) L 11/30/24 04:06 Magnesium 1.9 mg/dL (1.7-2.3) 11/30/24 04:06 Total Bilirubin 0.5 mg/dL (0.15-1.2) 11/28/24 16:41 AST 41 U/L (0-32) H 11/28/24 16:41 ALT 65 U/L (0-33) H 11/28/24 16:41 Alkaline Phosphatase 59 U/L (35-105) 11/28/24 16:41 C-Reactive Protein 35.2 mg/L (0.0-4.9) H 11/29/24 04:55 Total Protein 6.8 g/dL (6.6-8.7) 11/28/24 16:41 Albumin 3.9 g/dL (3.5-5.2) 11/28/24 16:41 Globulin 2.9 g/dL (1.3-4.6) 11/28/24 16:41 Lipase 45 U/L (13-60) 11/28/24 16:41 Urine Color Yellow (Yellow) 11/28/24 21:32 Urine Appearance Clear (CLEAR) 11/28/24 21: Urine pH 7.5 (5-7) 11/28/24 21:32 Ur Specific [place] 1.062 (1.005-1.030) H 11/28/24 21:32 Urine Protein Trace (Negative) A 11/28/24 21: Urine Glucose (UA) Negative (Normal) 11/28/24 21: Urine Ketones 1+ (Negative) H 11/28/24 21:32 Urine Blood Non-haemolysed trace (Negative) 11/28/24 21: Urine Nitrate Negative (Negative) 11/28/24 21: Urine Bilirubin Negative (Negative) 11/28/24 21: Urine Urobilinogen 1.0 mg/dL (Negative) 11/28/24 21:32 Ur Leukocyte Esterase Negative (Negative) 11/28/24 21:32 Urine RBC 3-5 /hpf (0-2) 11/28/24 21:32 Urine WBC 0-5 /hpf (0-5) 11/28/24 21:32 Ur Squamous Epith Cells 0-5 /hpf (0-5) 11/28/24 21:32 Amorphous Sediment Not Reportable 11/28/24 21:32 Urine Bacteria None seen /hpf (NONE) 11/28/24 21: Hyaline Casts 7.01 /lpf 11/28/24 21:32 Vitals Last Vital Signs Temp 97.6 F 11/30/24 11:18 Pulse 72 11/30/24 11:18 Resp 16 11/30/24 11:18 BP 159/93 11/30/24 11:18 Pulse Ox 97 11/30/24 11:18 O2 Del Method Room Air 11/30/24 10:00 Discharge Plan Discharge Patient Disposition: Home Condition: Stable Prescriptions: Continued metoprolol tartrate 25 mg tablet 25 mg PO BID Qty: 180 3RF norgestimate-ethinyl estradiol [Tri-Linyah] 0.18/0.215/0.25 mg-35 mcg (28) tablet 1 tab PO DAILY Qty: 84 3RF methylphenidate HCl 20 mg tablet extended release 20 mg PO DAILY 30 Days Qty: 30 0RF lisinopril 20 mg tablet 20 mg PO DAILY pantoprazole 40 mg tablet,delayed release (DR/EC) 40 mg PO DAILY melatonin 10 mg Tablet 10 mg PO BEDTIME Held semaglutide (weight loss) 1 mg/0.5 mL Pen Injector 1 mg SUBCUT Q7D Hold Instructions: see pcp escitalopram oxalate [Lexapro] 10 mg Tablet See Rx Instructions .ROUTE .COMPLEX Hold Instructions: medicine unverified, talk to PCP Rx Instructions: unknown dose; takes daily; patient at first stated that she took Prozac and then stated that it was Lexapro instead; this medication needs further verification Discharge Orders: Discharge Order (Routine); Ordered 11/30/24 Ordered By: Patria Cui Referrals: [facility] [Outside] - 7-10 days (We have notified your physician's clinic of the need for a follow-up appointment to be scheduled. If you have not heard from them within the next 2 business days, please call them directly. ) Robert Reno, DO [Primary Care Provider] - 4-7 days (We have notified your physician's clinic of the need for a follow-up appointment to be scheduled. If you have not heard from them within the next 2 business days, please call them directly. ) Discharge Diet: GI Soft Discharge Activity: Resume usual activity Patient Instructions: Dehydration (DC), Hypokalemia (DC), Bowel Obstruction (DC), Enteritis (DC), Opioid Safety Discharge Attestations Time Spent in Discharge Care*: greater than 30 min Quality Metrics Clinical Quality Measures [ No reported AMI, CVA or VTE this stay] Coding Level of Care Code Acute Code for Chg Fwd Diagnoses Bowel obstruction K56.609 Ileus due to infection K56.7; B99.9 Hypokalemia E87.6 Dehydration E86.0
[2024-11-30 14:03] VITALS: BP 159/93; PULSE 72; RESP 16; TEMP 36.4; O2SAT 97
== END 2024-11-30 13:32 | disposition home or self-care (01) | DRG 389 ==
LOC: ER 19:18 → MEDSURG 22:54
PROVIDERS: Physician Assistant; Admitting Provider Internal Medicine; Emergency Provider Student in an Organized Health Care Education/Training Program; PCP Family Medicine; Visit Provider Internal Medicine
DX: K56.600 Partial intestinal obstruction, unspecified as to cause (principal); N17.9 Acute kidney failure, unspecified; K52.9 Noninfective gastroenteritis and colitis, unspecified; K56.7 Ileus, unspecified; E87.6 Hypokalemia; E86.0 Dehydration; F10.11 Alcohol abuse, in remission; F32.A Depression, unspecified; E55.9 Vitamin D deficiency, unspecified; F41.1 Generalized anxiety disorder; I10 Essential (primary) hypertension; F98.8 Other specified behavioral and emotional disorders with onset usually occurring in childhood and adolescence; G47.33 Obstructive sleep apnea (adult) (pediatric); Z85.820 Personal history of malignant melanoma of skin; Z79.899 Other long term (current) drug therapy
CPT/HCPCS: 36415; 36416; 71045; 74018; 74177; 80048; 80053; 81001; 82962; 83605; 83690; 83735; 85025; 86140; 96372; J0696; J1644; J2405; J2470; J3010; J3480; J3490; J7030; J7042; J9999

== ENCOUNTER 2025-03-11 07:45 | Outpatient (CLI) | payer OTHER, SELFPAY ==
--- NOTE | 2025-03-11 07:47 | MM_ITS ---
WS: [id number] BILATERAL 3D TOMOSYNTHESIS DIGITAL SCREENING MAMMOGRAPHY WITH CAD CLINICAL INFORMATION: SCREENING HISTORY: Screening mammogram. No current complaints. COMPARISON: 2020 TECHNIQUE: Bilateral CC and MLO views. FINDINGS: Bilateral breast implants appear intact. Scattered fibroglandular densities bilaterally. No suspicious focal mass, asymmetry, calcifications, or architectural distortion. No evidence of malignancy. MM/MM scr tomosynthesis [id number] IMPRESSION: DENSITY: There are scattered areas of fibroglandular density. BI-RADS: 2 - Benign. FOLLOW UP: 1 Year Follow-up Recommend return to annual screening mammography.
== END 2025-03-11 07:46 | disposition home or self-care (01) ==
LOC: RAD 07:45
PROVIDERS: PCP Electrodiagnostic Medicine; Visit Provider Electrodiagnostic Medicine
DX: Z12.31 Encounter for screening mammogram for malignant neoplasm of breast (principal); R92.323 Mammographic fibroglandular density, bilateral breasts; Z98.82 Breast implant status
CPT/HCPCS: 77063; 77067

== ENCOUNTER 2025-06-19 16:14 | Outpatient (CLI) | payer OTHER, SELFPAY | END 2025-06-19 16:15 | disposition home or self-care (01) | LOC: LAB 16:15 | PROVIDERS: PCP Electrodiagnostic Medicine; Visit Provider Nurse Practitioner Family | DX: Z85.820 Personal history of malignant melanoma of skin (principal); Z08 Encounter for follow-up examination after completed treatment for malignant neoplasm | CPT/HCPCS: 36415; 83615 ==